=== PATIENT | male | born 1975 | race Caucasian/White ===

== ENCOUNTER 2017-09-07 15:57 | Emergency (ER) | payer MEDICAID ==
[~2017-09-07] VITALS: Ht 182.9 cm; Wt 134.3 kg
[~2017-09-07 15:57] MED LIST: ACETAMINOPHEN &1 TA1 PO; ADVAIR 250/5028 PUFF IN; ADVAIR DISKUS 21 DSK IH; ALBUTEROL2.5 MG/NEB IN; ASPIRIN EC81 MG PO; ATIVAN1 M1 PO; ATORVASTATIN 4040 MG PO; AZITHROMYCIN250 M1 PO; BACTRIM DS 8001 TAB PO; BISOPROLOL 5MG T5 MG PO; BRILINTA90 M1 PO; CLINDAMYCIN HC300 MG PO; CLOPIDOGREL75 M2 PO; COMBIVENT INH14.7 GM IN; COMBIVENT RESPI1 SPR IH; COMBIVENT1 AR1 IH; CUBICIN 500 MG500 MG IV; DIFLUCAN200 MG PO; DOXYCYCLINE100 M5 PO; FLAGYL 500MG.500 MG PO; GABAPENTIN300 MG PO; HYDROCHLOROTHIA25 M1 PO; HYDROCHLOROTHIA50 MG PO; IBU800 MG PO; IMDUR 30MG. TAB30 MG PO; KEFLEX500 M1 PO; LEVAQUIN 750 M750 MG PO; LEVOFLOXACIN 7750 M1 PO; LISINOPRIL 5MG T5 MG PO; LISINOPRIL10 MG PO; LOVENOX 4040 MG/0.1 IJ; MEDROL 4MG. DOSE4 MG PO; METFORMIN HCL1000 MG PO; METFORMIN1000 MG PO; METFORMIN500 MG PO; METOPROLOL25 MG PO; NEURONTIN600 M1 PO; NORCO 325 MG-51 TAB PO; NORCO1 TAB PO; PERCOCET 325 MG1 TA3 PO; PERCOCET 5/3251 EACH PO; PHENERGAN 25MG.25 M1 PO; PROTONIX 40MG T40 MG PO; RANITIDINE HCL150 MG PO; SALMETEROL-F28 PUFFS IN; TYLENOL W/CODEI1 TA2 PO; TYLENOL325 MG PO; VANCOCIN HCL1000 M1 IJ; VENTOLIN H0.09 MG/AC IH
--- OUTSIDE RECORDS SUMMARY | 2017-09-07 16:26 | External Medical Summary Rpt | CCD ---
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 Aguilera SITES INSECT BITE NONVENOMOUS INF 62871 BORDERLINE 01-18-2008 GANN, GLAUC OPEN TAMEKA A ANGLE BL FINDINGS LOW RSK 69162 UNS 01-18-2008 [facility] GASTRITIS&G LEO Aguilera ASTRODUODIT IS W/O MENTION HEMORR 4612 ACUTE 12-16-2007 [facility] ETHMOIDAL APOLINAR [facility] SINUSITIS 57957 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-08-2007 [facility] SLEEP APOLINAR Burgos APNEA 920 CONTUSION 11-04-2007 [place] [facility] EYE E8258 OTH MOTR 11-04-2007 [place] VEH NONTRFF MEDICAL OTH&UNS IMAGING [facility] OTH PERS E8498 OTHER 11-04-[address] [place] [address] [facility] OF [facility] Allergies, Adverse Reactions, Alerts Type Allergy to substance Adverse Reaction to Substance Substance Reaction Severity NO KNOWN ALLERGIES Unknown Unknown Clinical Alert Notifications Alert 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 Diabetes: no eye exam in the last 365 days Diabetes: no lipid panel in the last 365 days Diabetes: no urine protein screening in the last 365 days Medications Na ND Rx Da Fi Fi Am Da Di Ph RX Ph St me C No te ll ll ou ys ag ar # ys at rm s nt no ma ic us Or Da si cy ia de te s n re d GA 45 10 11 60 30 00 HO Ac BA 96 -2 -1 .0 00 ME ti PE 30 4- 7- 00 04 TO ve NT 55 20 20 02 WN IN 55 17 17 52 0 66 PH 10 AR 0 MA MG CY CA OF PS UL CY E NT HI AN A LI 68 10 11 30 30 00 HO Ac SI 00 -2 -1 .0 00 ME ti NO 10 4- 7- 06 TO ve VA 26 20 20 09 WN IL 70 17 17 67 5 8 17 PH AR MG MA CY TA BL OF ET CY NT HI AN A AT 60 10 11 30 30 00 HO Ac OR 50 -2 -1 .0 00 ME ti VA 52 4- 7- [address] 58 20 20 09 WN AT 00 17 17 67 IN 9 18 PH AR 40 MA CY MG OF TA BL CY ET NT HI AN A ME 67 10 11 60 30 00 HO Ac TF 87 -2 -1 .0 00 ME ti OR 70 4- 7- 00 06 TO ve LA 56 20 20 09 WN N 31 17 17 67 HC 0 19 PH L AR 1, MA 00 CY 0 MG OF TA CY BL NT ET HI AN A PA 31 10 11 30 30 00 HO Ac NT 72 -2 -1 .0 00 ME ti OP 20 4- 7- 00 06 TO ve RA 71 20 20 09 WN ZO 39 17 17 67 LE 0 21 PH AR SO MA D CY DR OF 40 CY MG NT HI TA AN B A 00 10 11 30 30 00 HO Ac PI 60 -2 -1 .0 00 ME ti RI 30 4- 7- 00 06 TO ve N 02 20 20 09 WN EC 63 17 17 67 2 22 PH 81 AR MA MG CY TA OF BL ET CY NT HI AN A CL 00 10 11 30 30 00 HO Ac OP 37 -1 -1 .0 00 ME ti ID 83 2- 0- 00 06 TO ve OG 62 20 20 07 WN RE 70 17 17 73 L 5 46 PH 75 AR MA MG CY TA OF BL ET CY NT HI AN A LI 68 10 11 30 30 00 HO Ac SI 00 -1 -1 .0 00 ME ti NO 10 2- 0- 00 06 TO ve VA 26 20 20 09 WN IL 80 17 17 60 8 40 PH 10 AR MA MG CY TA OF BL ET CY NT HI AN A ME 62 10 11 12 30 00 HO Ac TF 75 -1 -1 0. 00 ME ti OR 60 2- 0- 00 06 TO ve LA 14 20 20 0 09 WN N 20 17 17 60 HC 1 51 PH L AR ER MA CY 50 0 OF MG CY TA NT BL HI ET AN A BI 29 10 11 30 30 00 HO Ac SO 30 -1 -1 .0 00 ME ti VA 00 2- 0- 00 06 TO ve OL 12 20 20 09 WN OL 71 17 17 03 3 38 PH FU AR MA MA RA CY TE OF 10 CY MG NT HI TA AN B A CL 00 08 09 30 30 00 HO Ac OP 37 -1 -0 .0 00 ME ti ID 83 1- 8- 00 06 TO ve OG 62 20 20 07 WN RE 77 17 17 73 L 7 46 PH 75 AR MA MG CY TA OF BL ET CY NT HI AN A BI 29 08 09 30 30 00 HO Ac SO 30 -1 -0 .0 00 ME ti VA 00 1- 8- 00 06 TO ve OL 12 20 20 09 WN OL 71 17 17 03 3 38 PH FU AR MA MA RA CY TE OF 10 CY MG NT HI TA AN B A ME 60 08 09 12 30 00 HO Ac TF 50 -1 -0 0. 00 ME ti OR 50 1- 8- 00 06 TO ve LA 26 20 20 0 08 WN N 00 17 17 97 HC 2 91 PH L AR ER MA CY 50 0 OF MG CY TA NT BL HI ET AN A CO 00 08 09 4. 7 00 HO Ac MB 59 -1 -0 00 00 ME ti IV 70 4- 8- 0 06 TO ve EN 02 20 20 09 WN T 40 17 17 23 RE 2 67 PH SP AR IM MA AT CY IN OF NAVARRETE L CY SP NT RA HI Y AN A LI 68 08 09 30 30 00 HO Ac SI 00 -1 -0 .0 00 ME ti NO 10 4- 8- 00 06 TO ve VA 26 20 20 09 WN IL 80 17 17 23 8 68 PH 10 AR MA MG CY TA OF BL ET CY NT HI AN A GA 68 07 08 42 14 00 HO Ac BA 00 -1 -0 .0 00 ME ti PE 10 1- 4- 00 04 TO ve NT 00 20 20 02 WN IN 60 17 17 36 3 23 PH 60 AR 0 MA MG CY TA OF BL ET CY NT HI AN A BI 29 07 08 30 30 00 HO Ac SO 30 -0 -0 .0 00 ME ti VA 00 7- 4- 00 06 TO ve OL 12 20 20 09 WN OL 71 17 17 03 3 38 PH FU AR MA MA RA CY TE OF 10 CY MG NT HI TA AN B A VE 00 06 07 18 17 00 HO Ac NT 17 -3 -2 .0 00 ME ti OL 30 0- 8- 00 06 TO ve IN 68 20 20 09 WN 22 17 17 00 HF 0 24 PH A AR 90 MA CY MC G OF IN NAVARRETE CY LE NT R HI AN A ME 60 06 07 12 30 00 HO Ac TF 50 -2 -2 0. 00 ME ti OR 50 8- 1- 00 06 TO ve LA 26 20 20 0 08 WN N 00 17 17 97 HC 2 91 PH L AR ER MA CY 50 0 OF MG CY TA NT BL HI ET AN A CO 00 06 07 4. 28 00 HO Ac MB 59 -1 -0 00 00 ME ti IV 70 2- 7- 0 06 TO ve EN 02 20 20 08 WN T 40 17 17 26 RE 2 07 PH SP AR IM MA AT CY IN OF NAVARRETE L CY SP NT RA HI Y AN A CL 55 06 07 30 30 00 HO Ac OP 11 -1 -0 .0 00 ME ti ID 10 2- 7- 00 06 TO ve OG 19 20 20 07 WN RE 60 17 17 73 L 5 46 PH 75 AR MA MG CY TA OF BL ET CY NT HI AN A GA 68 06 07 84 28 00 HO Ac BA 00 -1 -0 .0 00 ME ti PE 10 2- 7- 00 06 TO ve NT 00 20 20 08 WN IN 60 17 17 87 3 85 PH 60 AR 0 MA MG CY TA OF BL ET CY NT HI AN A LI 68 05 06 30 30 00 HO Ac SI 00 -2 -1 .0 00 ME ti NO 10 2- 6- 00 06 TO ve VA 26 20 20 08 WN IL 80 17 17 74 8 61 PH 10 AR MA MG CY TA OF BL ET CY NT HI AN A CO 00 05 06 4. 28 00 HO Ac MB 59 -1 -0 00 00 ME ti IV 70 6- 9- 0 06 TO ve EN 02 20 20 08 WN T 40 17 17 26 RE 2 07 PH SP AR IM MA AT CY IN OF NAVARRETE L CY SP NT RA HI Y AN A CL 55 05 06 30 30 00 HO Ac OP 11 -1 -0 .0 00 ME ti ID 10 6- 9- 00 06 TO ve OG 19 20 20 07 WN RE 60 17 17 73 L 5 46 PH 75 AR MA MG CY TA OF BL ET CY NT HI AN A VE 00 05 06 18 17 00 HO Ac NT 17 -1 -0 .0 00 ME ti OL 30 6- 9- 00 06 TO ve IN 68 20 20 07 WN 22 17 17 86 HF 0 30 PH A AR 90 MA CY MC G OF IN NAVARRETE CY LE NT R HI AN A GA 68 05 05 84 28 00 HO Ac BA 00 -0 -2 .0 00 ME ti PE 10 2- 6- 00 06 TO ve NT 00 20 20 08 WN IN 60 17 17 61 3 98 PH 60 AR 0 MA MG CY TA OF BL ET CY NT HI AN A VE 00 04 05 18 17 00 HO Ac NT 17 -2 -1 .0 00 ME ti OL 30 4- 9- 00 06 TO ve IN 68 20 20 07 WN 22 17 17 86 HF 0 30 PH A AR 90 MA CY MC G OF IN NAVARRETE CY LE NT R HI AN A LI 68 04 05 30 30 00 HO Ac SI 00 -1 -1 .0 00 ME ti NO 10 7- 2- 00 06 TO ve VA 26 20 20 08 WN IL 80 17 17 08 8 75 PH 10 AR MA MG CY TA OF BL ET CY NT HI AN A CL 55 04 05 30 30 00 HO Ac OP 11 -1 -1 .0 00 ME ti ID 10 7- 2- 06 TO ve OG 19 20 20 07 WN RE 60 17 17 73 L 5 46 PH 75 AR MA MG CY TA OF BL ET CY NT HI AN A CO 00 04 04 4. 28 00 HO Ac MB 59 -0 -2 00 00 ME ti IV 70 5- 8- 0 06 TO ve EN 02 20 20 08 WN T 40 17 17 26 RE 2 07 PH SP AR IM MA AT CY IN OF NAVARRETE L CY SP NT RA HI Y AN A GA 68 04 04 84 28 00 HO Ac BA 00 -0 -2 .0 00 ME ti PE 10 5- 8- 00 06 TO ve NT 00 20 20 08 WN IN 60 17 17 10 3 36 PH 60 AR 0 MA MG CY TA OF BL ET CY NT HI AN A DA 00 03 04 12 7 00 IN Ac PT 70 -1 -1 .0 05 FU ti OM 30 6- 4- 00 00 SI ve YC 12 20 20 11 ON IN 50 17 17 12 1 61 PA 50 RT 0 NE MG RS OF AL LE XI NG TO N LE 55 03 04 15 7 00 IN Ac VO 15 -2 -1 0. 05 FU ti FL 00 1- 4- 00 00 SI ve OX 15 20 20 0 11 ON AC 73 17 17 12 IN 0 62 PA RT 75 NE 0 RS MG /3 OF 0 ML LE XI NG AL TO N CO 00 03 04 4. 28 00 HO Ac MB 59 -1 -0 00 00 ME ti IV 70 3- 7- 0 06 TO ve EN 02 20 20 08 WN T 40 17 17 26 RE 2 07 PH SP AR IM MA AT CY IN OF NAVARRETE L CY SP NT RA HI Y AN A BI 29 03 04 60 30 00 HO Ac SO 30 -1 -0 .0 00 ME ti VA 00 3- 7- 00 06 TO ve OL 12 20 20 07 WN OL 60 17 17 55 1 31 PH FU AR MA MA RA CY TE 5 OF MG CY NT TA HI B AN A VE 00 03 04 18 17 00 HO Ac NT 17 -1 -0 .0 00 ME ti OL 30 3- 7- 00 06 TO ve IN 68 20 20 07 WN 22 17 17 86 HF 0 30 PH A AR 90 MA CY MC G OF IN NAVARRETE CY LE NT R HI AN A IB 53 03 04 90 30 00 HO Ac UP 74 -1 -0 .0 00 ME ti RO 60 3- 7- 00 06 TO ve FE 46 20 20 07 WN N 60 17 17 91 80 5 66 PH 0 AR MG MA CY TA BL OF ET CY NT HI AN A CL 00 03 04 30 30 00 HO Ac OP 37 -1 -0 .0 00 ME ti ID 83 3- 7- 00 06 TO ve OG 62 20 20 07 WN RE 70 17 17 73 L 5 46 PH 75 AR MA MG CY TA OF BL ET CY NT HI AN A LI 68 03 04 30 30 00 HO Ac SI 18 -1 -0 .0 00 ME ti NO 00 3- 7- 00 06 TO ve VA 51 20 20 08 WN IL 40 17 17 08 3 75 PH 10 AR MA MG CY TA OF BL ET CY NT HI AN A GL 00 03 04 30 30 00 HO Ac IP 59 -1 -0 .0 00 ME ti IZ 10 3- 7- 00 06 TO ve ID 84 20 20 08 WN E 40 17 17 08 ER 1 76 PH 5 AR MA MG CY TA OF BL ET CY NT HI AN A ME 60 03 04 12 30 00 HO Ac TF 50 -1 -0 0. 00 ME ti OR 50 3- 7- 00 06 TO ve LA 26 20 20 0 08 WN N 00 17 17 08 HC 2 77 PH L AR ER MA CY 50 0 OF MG CY TA NT BL HI ET AN A GA 68 03 04 84 28 00 HO Ac BA 00 -0 -0 .0 00 ME ti PE 10 9- 7- 00 06 TO ve NT 00 20 20 08 WN IN 60 17 17 10 3 36 PH 60 AR 0 MA MG CY TA OF BL ET CY NT HI AN A OX 53 03 03 24 6 00 HO Ac YC 74 -0 -3 .0 00 ME ti OD 60 3- 1- 00 02 TO ve ON 20 20 20 01 WN E- 30 17 17 30 AC 5 50 PH ET AR AM MA IN CY OP HE OF N 5- CY 32 NT 5 HI AN A DA 00 03 03 12 7 00 IN Ac PT 70 -0 -3 .0 05 FU ti OM 30 3- 1- 00 00 SI ve YC 12 20 20 11 ON IN 50 17 17 12 1 61 PA 50 RT 0 NE MG RS OF AL LE XI NG TO N LE 55 03 03 15 7 00 IN Ac VO 15 -0 -3 0. 05 FU ti FL 00 3- 1- 00 00 SI ve OX 15 20 20 0 11 ON AC 73 17 17 12 IN 0 62 PA RT 75 NE 0 RS MG /3 OF 0 ML LE XI NG AL TO N SO 00 02 03 30 3 00 IN Ac DI 33 -2 -2 0. 05 FU ti UM 80 3- 4- 00 00 SI ve 55 20 20 0 11 ON CH 31 17 17 10 LO 8 63 PA RI RT DE NE RS 0. 9% OF SO LE SUE XI TI NG ON TO N HY 00 02 03 9. [address] 60 -2 -2 00 00 ME ti OC 33 4- 4- 0 02 TO ve OD 89 20 20 01 WN ON 03 17 17 29 -A 2 86 PH CE AR TA MA LA CY NO PH OF EN CY 5- NT 32 HI 5 AN A CO 00 02 03 4. 30 00 HO Ac MB 59 -1 -1 00 00 ME ti IV 70 0- 0- 0 06 TO ve EN 02 20 20 07 WN T 40 17 17 49 RE 2 07 PH SP AR IM MA AT CY IN OF NAVARRETE L CY SP NT RA HI Y AN A CL 00 02 03 30 30 00 HO Ac OP 37 -1 -1 .0 00 ME ti ID 83 3- 0- 00 06 TO ve OG 62 20 20 07 WN RE 70 17 17 73 L 5 46 PH 75 AR MA MG CY TA OF BL ET CY NT HI AN A BI 29 02 03 60 30 00 HO Ac SO 30 -0 -0 .0 00 ME ti VA 00 2- 3- 00 06 TO ve OL 12 20 20 07 WN OL 60 17 17 55 1 31 PH FU AR MA MA RA CY TE 5 OF MG CY NT TA HI B AN A LI 68 02 03 30 30 00 HO Ac SI 18 -0 -0 .0 00 ME ti NO 00 6- 3- 00 06 TO ve VA 51 20 20 08 WN IL 40 17 17 08 3 75 PH 10 AR MA MG CY TA OF BL ET CY NT HI AN A GL 00 02 03 30 30 00 HO Ac IP 59 -0 -0 .0 00 ME ti IZ 10 6- 3- 00 06 TO ve ID 84 20 20 08 WN E 40 17 17 08 ER 1 76 PH 5 AR MA MG CY TA OF BL ET CY NT HI AN A ME 60 02 03 12 30 00 HO Ac TF 50 -0 -0 0. 00 ME ti OR 50 6- 3- 00 06 TO ve LA 26 20 20 0 08 WN N 00 17 17 08 HC 2 77 PH L AR ER MA CY 50 0 OF MG CY TA NT BL HI ET AN A GA 68 02 03 84 28 00 HO Ac BA 00 -0 -0 .0 00 ME ti PE 10 8- 3- 00 06 TO ve NT 00 20 20 08 WN IN 60 17 17 10 3 36 PH 60 AR 0 MA MG CY TA OF BL ET CY NT HI AN A DA 00 01 02 7. 4 00 IN Ac PT 70 -2 -1 00 05 FU ti OM 30 5- 7- 0 00 SI ve YC 12 20 20 10 ON IN 50 17 17 98 1 52 PA 50 RT 0 NE MG RS OF AL ANNE-MARIE FOSTER NG TO N DA 00 01 02 8. 5 00 IN Ac PT 70 -1 -1 00 05 FU ti OM 30 4- 0- 0 00 SI ve YC 12 20 20 10 ON IN 50 17 17 98 1 52 PA 50 RT 0 NE MG RS OF ESTEBAN LOPEZ NG TO N CO 00 01 02 4. 30 00 HO Ac MB 59 -1 -1 00 00 ME ti IV 70 8- 0- 0 06 TO ve EN 02 20 20 07 WN T 40 17 17 49 RE 2 07 PH SP AR IM MA AT CY IN OF NAVARRETE L CY SP NT RA HI Y AN A HY 00 01 02 [address] 60 -1 -1 .0 00 ME ti OC 33 8- 0- 00 02 TO ve OD 89 20 20 01 WN ON 03 17 17 26 -A 2 27 PH CE AR TA MA LA CY NO PH OF EN CY 5- NT 32 HI 5 AN A VE 00 01 02 18 17 00 HO Ac NT 17 -1 -1 .0 00 ME ti OL 30 8- 0- 00 06 TO ve IN 68 20 20 07 WN 22 17 17 86 HF 0 30 PH A AR 90 MA CY MC G OF IN NAVARRETE CY LE NT R HI AN A LI 00 01 02 30 30 00 HO Ac SI 18 -1 -0 .0 00 ME ti NO 55 1- 3- 00 06 TO ve VA 40 20 20 07 WN IL 01 17 17 93 5 0 19 PH AR MG MA CY TA BL OF ET CY NT HI AN A CL 00 01 02 30 30 00 HO Ac OP 37 -0 -0 .0 00 ME ti ID 83 9- 3- 00 06 TO ve OG 62 20 20 07 WN RE 70 17 17 73 L 5 46 PH 75 AR MA MG CY TA OF BL ET CY NT HI AN A IB 53 01 02 90 30 00 HO Ac UP 74 -0 -0 .0 00 ME ti RO 60 9- 3- 00 06 TO ve FE 46 20 20 07 WN N 60 17 17 91 80 5 66 PH 0 AR MG MA CY TA BL OF ET CY NT HI AN A GA 68 01 02 84 28 00 HO Ac BA 00 -1 -0 .0 00 ME ti PE 10 1- 3- 00 06 TO ve NT 00 20 20 07 WN IN 60 17 17 54 3 10 PH 60 AR 0 MA MG CY TA OF BL ET CY NT HI AN A VE 00 01 01 18 17 00 HO Ac NT 17 -0 -2 .0 00 ME ti OL 30 2- 7- 00 06 TO ve IN 68 20 20 07 WN 22 17 17 86 HF 0 30 PH A AR 90 MA CY MC G OF IN NAVARRETE CY LE NT R HI AN A HY 00 01 01 [address] 60 -0 -2 .0 00 ME ti OC 33 4- 7- 00 02 TO ve OD 89 20 20 01 WN ON 03 17 17 24 -A 2 93 PH CE AR TA MA LA CY NO PH OF EN CY 5- NT 32 HI 5 AN A JOHNSON 53 12 01 20 10 00 HO Ac LF 74 -2 -2 .0 00 ME ti AM 60 2- 0- 00 06 TO ve ET 27 20 20 07 WN HO 20 16 17 81 XA 5 35 PH ZO AR LE MA -T CY MP OF DS CY TA NT BL HI ET AN A ZO 00 12 01 10 10 00 HO Ac LP 09 -2 -2 .0 00 ME ti ID 30 2- 0- 00 04 TO ve EM 07 20 20 02 WN 40 16 17 07 TA 1 39 PH RT AR RA MA TE CY 10 OF MG CY NT TA HI BL AN ET A IS 62 12 01 30 30 00 HO Ac OS 17 -2 -2 .0 00 ME ti OR 50 6- 0- 00 06 TO ve BI 12 20 20 07 WN DE 84 16 17 82 1 37 PH MN AR MA ER CY 30 OF MG CY NT TA HI BL AN ET A GA 68 12 01 84 28 00 HO Ac BA 00 -1 -1 .0 00 ME ti PE 10 6- 3- 00 06 TO ve NT 00 20 20 07 WN IN 60 16 17 54 3 10 PH 60 AR 0 MA MG CY TA OF BL ET CY NT HI AN A SO 00 12 01 10 10 00 IN Ac DI 33 -1 -1 00 05 FU ti UM 80 2- 3- .0 00 SI ve 04 20 20 00 10 ON CH 93 16 17 92 LO 8 27 PA RI RT DE NE RS 0. 9% OF SO LE SUE XI TI NG ON TO N CO 00 12 01 4. 30 00 HO Ac MB 59 -1 -1 00 00 ME ti IV 70 9- 3- 0 06 TO ve EN 02 20 20 07 WN T 40 16 17 49 RE 2 07 PH SP AR IM MA AT CY IN OF NAVARRETE L CY SP NT RA HI Y AN A CL 00 12 01 30 30 00 HO Ac OP 37 -1 -0 .0 00 ME ti ID 83 2- 9- 00 06 TO ve OG 62 20 20 07 WN RE 70 16 17 73 L 5 46 PH 75 AR MA MG CY TA OF BL ET CY NT HI AN A HY 00 12 01 [address] 60 -1 -0 .0 00 ME ti OC 33 2- 9- 00 02 TO ve OD 89 20 20 01 WN ON 03 16 17 22 -A 2 75 PH CE AR TA MA LA CY NO PH OF EN CY 5- NT 32 HI 5 AN A SI 63 10 0 No ME 73 -0 TH 90 2- Lo IC 22 20 ng ON 51 13 er E 0 80 Ac ti MG ve TA B CH EW PA 51 10 0 No NT 07 -0 OP 90 2- Lo RA 05 20 ng ZO 12 13 er LE 0 Ac SO ti D ve DR 40 MG TA B HE 00 09 Ac PA 40 -2 ti RI 97 7- ve N- 76 20 D5 10 13 W 3 25 ,0 00 UN IT /5 00 ML NI 00 09 0 No TR 28 -2 O- 10 7- Lo BI 32 20 ng D 60 13 er 2% 8 Ac OI ti NT ve ME NT ON 00 09 0 No DA 64 -2 NS 16 7- Lo ET 08 20 ng RO 02 13 er N 5 HC Ac L ti 4 ve MG /2 ML AL Mo 00 09 0 No rp 40 -2 hi 91 7- Lo ne 25 20 ng 83 13 er 4M 0 G/ Ac Ml ti ve Sy ri ng e BR 00 09 0 No IL 18 -2 IN 60 7- Lo TA 77 20 ng 73 13 er 90 9 Ac MG ti ve TA BL ET ME 00 09 0 No TO 40 -2 VA 92 7- Lo OL 28 20 ng OL 50 13 er 5 TA Ac RT ti 5 ve MG /5 ML AM P He 00 09 0 No pa 40 -2 ri 91 7- Lo n 40 20 ng 5, 23 13 er 00 1 0 Ac Un ti it ve s/ Ml Sy ri ng e NT 00 09 1 No G 40 -2 0. 91 7- Lo 2 48 20 ng MG 20 13 er /M 2 L Ac IN ti ve D5 W TR 65 10 10 0 15 25 EA 24 LA Ac AM 16 -2 -[address] 68 CK ti AD 20 7- 7- 00 SI 76 ve OL 62 20 20 0 DE GR 71 11 11 EG HC 1 PH OR L AR Y 50 MA E CY MG OF TA BL CY ET NT HI AN A AD 00 10 10 5 60 30 EA 24 AR Ac VA 17 -2 -[address] 68 NO ti IR 30 7- 7- 00 SI 99 LD ve 69 20 20 DE 25 60 11 11 RI 0- 0 PH CH 50 AR AR MA D DI CY W SK US OF CY NT HI AN A ME 62 10 10 0 20 20 EA 24 HO Ac TO 03 -2 -[address] 61 US ti VA 70 1- 1- 00 SI 05 MA ve OL 83 20 20 DE N OL 11 11 11 WI 0 PH LL JOHNSON AR IA CC MA M CY H ER OF 50 CY MG NT HI TA AN B A BA 16 10 10 0 30 10 EA 24 HO Ac CL 71 -2 -[address] 61 US ti OF 40 1- 1- 00 SI 06 MA ve EN 07 20 20 DE N 10 11 11 WI 10 6 PH LL AR IA MG MA M CY H TA BL OF ET CY NT HI AN A TR 65 09 09 0 15 25 EA 24 GI Ac AM 16 -2 -[address] 27 LB ti AD 20 7- 7- 00 SI 03 ER ve OL 62 20 20 0 DE T 71 11 11 NITA HC 1 PH HN L AR W 50 MA CY MG OF TA BL CY ET NT HI AN A CY 00 09 09 0 90 30 EA 24 GI Ac CL 37 -2 -[address] 27 LB ti OB 80 7- 7- 00 SI 05 ER ve EN 75 20 20 DE T ZA 11 11 11 NITA VA 0 PH HN IN AR W E MA 10 CY MG OF TA CY BL NT ET HI AN A TR 65 08 08 0 15 25 EA 23 HE Ac AM 16 -0 -[address] ti AD 20 2- 2- 00 SI 35 ER ve OL 62 20 20 0 DE [address] HC 1 PH EP L AR NAVARRETE 50 MA NI CY E MG L OF TA BL CY ET NT HI AN A 00 08 08 0 90 30 EA 23 HE Ac 59 -0 -[address] 50 [address] ti 10 2- 2- 00 SI 36 ER ve 54 20 20 DE [address] 1 PH EP AR NAVARRETE MA NI CY E L OF CY NT HI AN A CY 00 08 08 0 90 30 EA 23 HE Ac CL 37 -0 -[address] ti OB 80 2- 2- 00 SI 37 ER ve EN 75 20 20 DE ZA [address] VA 0 PH EP IN AR NAVARRETE E MA NI 10 CY E L MG OF TA CY BL NT ET HI AN A TR 65 07 07 0 15 30 EA 23 GI Ac AM 16 -0 -[address] 17 LB ti AD 20 5- 5- 00 SI 53 ER ve OL 62 20 20 0 DE T 71 11 11 NITA HC 1 PH HN L AR W 50 MA CY MG OF TA BL CY ET NT HI AN A CY 00 07 07 0 90 30 EA 23 GI Ac CL 37 -0 -[address] 17 LB ti OB 80 5- 5- 00 SI 55 ER ve EN 75 20 20 DE T ZA 11 11 11 NITA VA 0 PH HN IN AR W E MA 10 CY MG OF TA CY BL NT ET HI AN A IB 53 10 05 5 90 30 EA 19 AR Ac UP 74 -1 -[address] 53 NO ti RO 60 4- 3- 00 SI 94 LD ve FE 46 20 20 DE N 60 10 11 RI 80 5 PH CH 0 AR AR MG MA D CY W TA BL OF ET CY NT HI AN A 59 01 05 5 8. 20 EA 20 AR Ac 31 -2 -[address] 99 NO ti 00 8- 3- 0 SI 77 LD ve 57 20 20 DE 92 11 11 RI 0 PH CH AR AR MA D CY W OF CY NT HI AN A TR 65 03 05 2 15 30 EA 21 GI Ac AM 16 -1 -[address] 68 LB ti AD 20 4- 3- 00 SI 22 ER ve OL 62 20 20 0 DE T 71 11 11 NITA HC 1 PH HN L AR W 50 MA CY MG OF TA BL CY ET NT HI AN A TI 00 03 05 2 90 30 EA 21 GI Ac ZA 18 -1 -[address] 68 LB ti NI 54 4- 3- 00 SI 23 ER ve DI 40 20 20 DE T NE 02 11 11 NITA 3 PH HN HC AR W L MA 4 CY MG OF TA BL CY ET NT HI AN A HY 00 09 04 5 30 30 EA [address] 17 -1 -[address] 07 NO ti OC 22 0- 2- 00 SI 28 LD ve HL 08 20 20 DE OR 96 10 11 RI OT 0 PH CH HI AR AR AZ MA D ID CY W E 50 OF MG CY NT TA HI B AN A TR 65 03 04 2 15 30 EA 21 GI Ac AM 16 -1 -[address] 68 LB ti AD 20 4- 2- 00 SI 22 ER ve OL 62 20 20 0 DE T 71 11 11 NITA HC 1 PH HN L AR W 50 MA CY MG OF TA BL CY ET NT HI AN A TI 00 03 04 2 90 30 EA 21 GI Ac ZA 18 -1 -[address] 68 LB ti NI 54 4- 2- 00 SI 23 ER ve DI 40 20 20 DE T NE 02 11 11 NITA 3 PH HN HC AR W L MA 4 CY MG OF TA BL CY ET NT HI AN A IB 53 10 04 5 90 30 EA 19 AR Ac UP 74 -1 -[address] 53 NO ti RO 60 4- 2- 00 SI 94 LD ve FE 46 20 20 DE N 60 10 11 RI 80 5 PH CH 0 AR AR MG MA D CY W TA BL OF ET CY NT HI AN A 59 01 04 5 8. 20 EA 20 AR Ac 31 -2 -[address] 99 NO ti 00 8- 2- 0 SI 77 LD ve 57 20 20 DE 92 11 11 RI 0 PH CH AR AR MA D CY W OF CY NT HI AN A TR 65 03 03 2 15 30 EA 21 GI Ac AM 16 -1 -[address] 68 LB ti AD 20 4- 4- 00 SI 22 ER ve OL 62 20 20 0 DE T 71 11 11 NITA HC 1 PH HN L AR W 50 MA CY MG OF TA BL CY ET NT HI AN A TI 00 03 03 2 90 30 EA 21 GI Ac ZA 18 -1 -[address] 68 LB ti NI 54 4- 4- 00 SI 23 ER ve DI 40 20 20 DE T NE 02 11 11 NITA 3 PH HN HC AR W L MA 4 CY MG OF TA BL CY ET NT HI AN A IB 53 10 02 5 90 30 EA 19 AR Ac UP 74 -1 -[address] 53 NO ti RO 60 4- 7- 00 SI 94 LD ve FE 46 20 20 DE N 60 10 11 RI 80 5 PH CH 0 AR AR MG MA D CY W TA BL OF ET CY NT HI AN A TR 65 11 01 2 15 30 EA 20 GI Ac AM 16 -3 -[address] 19 LB ti AD 20 0- 9- 00 SI 11 ER ve OL 62 20 20 0 DE T 71 10 11 NITA HC 1 PH HN L AR W 50 MA CY MG OF TA BL CY ET NT HI AN A TI 00 11 01 2 90 30 EA 20 GI Ac ZA 18 -3 -[address] 19 LB ti NI 54 0- 8- 00 SI 12 ER ve DI 40 20 20 DE T NE 02 10 11 NITA 3 PH HN HC AR W L MA 4 CY MG OF TA BL CY ET NT HI AN A 59 01 01 5 8. 20 EA 20 AR Ac 31 -2 -[address] 99 NO ti 00 8- 8- 0 SI 77 LD ve 57 20 20 DE 92 11 11 RI 0 PH CH AR AR MA D CY W OF CY NT HI AN A TR 65 11 12 2 15 30 EA 20 GI Ac AM 16 -3 -[address] 19 LB ti AD 20 0- 0- 00 SI 11 ER ve OL 62 20 20 0 DE T 71 10 10 NITA HC 1 PH HN L AR W 50 MA CY MG OF TA BL CY ET NT HI AN A HY 00 09 12 5 30 30 EA [address] 17 -1 -[address] 07 NO ti OC 22 0- 7- 00 SI 28 LD ve HL 08 20 20 DE OR 96 10 10 RI OT 0 PH CH HI AR AR AZ MA D ID CY W E 50 OF MG CY NT TA HI B AN A TI 00 11 12 2 90 30 EA 20 GI Ac ZA 18 -3 -[address] 19 LB ti NI 54 0- 7- 00 SI 12 ER ve DI 40 20 20 DE T NE 02 10 10 NITA 3 PH HN HC AR W L MA 4 CY MG OF TA BL CY ET NT HI AN A IB 53 10 12 5 90 30 EA 19 AR Ac UP 74 -1 -[address] 53 NO ti RO 60 4- 1- 00 SI 94 LD ve FE 46 20 20 DE N 60 10 10 RI 80 5 PH CH 0 AR AR MG MA D CY W TA BL OF ET CY NT HI AN A TR 65 11 11 2 15 30 EA 20 GI Ac AM 16 -3 -[address] 19 LB ti AD 20 0- 0- 00 SI 11 ER ve OL 62 20 20 0 DE T 71 10 10 NITA HC 1 PH HN L AR W 50 MA CY MG OF TA BL CY ET NT HI AN A TI 00 11 11 2 90 30 EA 20 GI Ac ZA 18 -3 -[address] 19 LB ti NI 54 0- 0- 00 SI 12 ER ve DI 40 20 20 DE T NE 02 10 10 NITA 3 PH HN HC AR W L MA 4 CY MG OF TA BL CY ET NT HI AN A TI 00 08 10 2 90 30 EA 18 GI Ac ZA 18 -3 -[address] 93 LB ti NI 54 1- 8- 00 SI 14 ER ve DI 40 20 20 DE T NE 02 10 10 NITA 3 PH HN HC AR W L MA 4 CY MG OF TA BL CY ET NT HI AN A TR 65 08 10 2 15 30 EA 18 GI Ac AM 16 -3 -[address] 93 LB ti AD 20 1- 8- 00 SI 15 ER ve OL 62 20 20 0 DE T 71 10 10 NITA HC 1 PH HN L AR W 50 MA CY MG OF TA BL CY ET NT HI AN A 59 10 10 0 8. 20 EA 19 AR Ac 31 -2 -[address] 72 NO ti 00 8- 8- 0 SI 59 LD ve 57 20 20 DE 92 10 10 RI 0 PH CH AR AR MA D CY W OF CY NT HI AN A IB 53 10 10 5 90 30 EA 19 AR Ac UP 74 -1 -[address] 53 NO ti RO 60 4- 4- 00 SI 94 LD ve FE 46 20 20 DE N 60 10 10 RI 80 5 PH CH 0 AR AR MG MA D CY W TA BL OF ET CY NT HI AN A TI 00 08 09 2 90 30 EA 18 GI Ac ZA 18 -3 -[address] 93 LB ti NI 54 1- 0- 00 SI 14 ER ve DI 40 20 20 DE T NE 02 10 10 NITA 3 PH HN HC AR W L MA 4 CY MG OF TA BL CY ET NT HI AN A TR 65 08 09 2 15 30 EA 18 GI Ac AM 16 -3 -[address] 93 LB ti AD 20 1- 0- 00 SI 15 ER ve OL 62 20 20 0 DE T 71 10 10 NTIA HC 1 PH HN L AR W 50 MA CY MG OF TA BL CY ET NT HI AN A AL 00 09 09 11 36 30 YO 22 AR Ac BU 48 -1 -1 0. UR 04 NO ti TE 79 6- 6- 00 3 LD ve RO 50 20 20 0 PH L 16 10 10 AR RI JOHNSON 0 MA CH L CY AR 2. D 5 W MG /[address] 59 01 09 5 8. 20 EA 15 AR Ac 31 -1 -[address] 96 NO ti 00 4- 3- 0 SI 23 LD ve 57 20 20 DE 92 10 10 RI 0 PH CH AR AR MA D CY W OF CY NT HI AN A HY 00 09 09 5 30 30 EA [address] 17 -1 -[address] 07 NO ti OC 22 0- 0- 00 SI 28 LD ve HL 08 20 20 DE OR 96 10 10 RI OT 0 PH CH HI AR AR AZ MA D ID CY W E 50 OF MG CY NT TA HI B AN A ME 00 09 09 5 12 30 EA 19 AR Ac TF 09 -1 -[address] 07 NO ti OR 31 0- 0- 00 SI 29 LD ve LA 04 20 20 0 DE N 81 10 10 RI HC 0 PH CH L AR AR 50 MA D 0 CY W MG OF TA BL CY ET NT HI AN A TI 00 08 08 2 90 30 EA 18 GI Ac ZA 18 -3 -[address] 93 LB ti NI 54 1- 1- 00 SI 14 ER ve DI 40 20 20 DE T NE 02 10 10 NITA 3 PH HN HC AR W L MA 4 CY MG OF TA BL CY ET NT HI AN A TR 65 08 08 2 15 30 EA 18 GI Ac AM 16 -3 -[address] 93 LB ti AD 20 1- 1- 00 SI 15 ER ve OL 62 20 20 0 DE T 71 10 10 NITA HC 1 PH HN L AR W 50 MA CY MG OF TA BL CY ET NT HI AN A TR 65 06 08 2 15 30 EA 17 GI Ac AM 16 -0 -[address] 86 LB ti AD 20 4- 2- 00 SI 52 ER ve OL 62 20 20 0 DE T 71 10 10 NITA HC 1 PH HN L AR W 50 MA CY MG OF TA BL CY ET NT HI AN A HY 00 08 08 0 30 30 EA [address] 17 -0 -[address] 54 NO ti OC 22 2- 2- 00 SI 60 LD ve HL 08 20 20 DE OR 96 10 10 RI OT 0 PH CH HI AR AR AZ MA D ID CY W E 50 OF MG CY NT TA HI B AN A 59 01 07 5 8. 20 EA 15 AR Ac 31 -1 -[address] 96 NO ti 00 4- 2- 0 SI 23 LD ve 57 20 20 DE 92 10 10 RI 0 PH CH AR AR MA D CY W OF CY NT HI AN A ME 00 04 07 5 12 30 EA 17 AR Ac TF 09 -2 -[address] 28 NO ti OR 31 1- 2- 00 SI 25 LD ve LA 04 20 20 0 DE N 81 10 10 RI HC 0 PH CH L AR AR 50 MA D 0 CY W MG OF TA BL CY ET NT HI AN A TI 00 06 07 2 90 30 EA 17 GI Ac ZA 18 -0 -[address] 86 LB ti NI 54 4- 2- 00 SI 51 ER ve DI 40 20 20 DE T NE 02 10 10 NITA 3 PH HN HC AR W L MA 4 CY MG OF TA BL CY ET NT HI AN A TR 65 06 07 2 15 30 EA 17 GI Ac AM 16 -0 -[address] 86 LB ti AD 20 4- 2- 00 SI 52 ER ve OL 62 20 20 0 DE T 71 10 10 NITA HC 1 PH HN L AR W 50 MA CY MG OF TA BL CY ET NT HI AN A 00 06 06 2 90 30 EA 17 GI Ac 59 -0 -[address] 86 LB ti 10 4- 4- 00 SI 50 ER ve 54 20 20 DE T 00 10 10 NITA 1 PH HN AR W MA CY OF CY NT HI AN A TI 00 06 06 2 90 30 EA 17 GI Ac ZA 18 -0 -[address] 86 LB ti NI 54 4- 4- 00 SI 51 ER ve DI 40 20 20 DE T NE 02 10 10 NITA 3 PH HN HC AR W L MA 4 CY MG OF TA BL CY ET NT HI AN A TR 65 06 06 2 15 30 EA 17 GI Ac AM 16 -0 -[address] 86 LB ti AD 20 4- 4- 00 SI 52 ER ve OL 62 20 20 0 DE T 71 10 10 NITA HC 1 PH HN L AR W 50 MA CY MG OF TA BL CY ET NT HI AN A HY 00 06 04 11 30 30 EA [address] 17 -2 -[address] 23 NO ti OC 22 2- 1- 00 SI 23 LD ve HL 08 20 20 DE OR 96 09 10 RI OT 0 PH CH HI AR AR AZ MA D ID CY W E 50 OF MG CY NT TA HI B AN A 59 01 04 5 8. 25 EA 15 AR Ac 31 -1 -[address] 96 NO ti 00 4- 1- 0 SI 23 LD ve 57 20 20 DE 92 10 10 RI 0 PH CH AR AR MA D CY W OF CY NT HI AN A TR 65 02 04 2 15 30 EA 16 GI Ac AM 16 -2 -[address] 47 LB ti AD 20 2- 1- 00 SI 31 ER ve OL 62 20 20 0 DE T 71 10 10 NITA HC 1 PH HN L AR W 50 MA CY MG OF TA BL CY ET NT HI AN A ME 00 04 04 5 12 30 EA 17 AR Ac TF 09 -2 -[address] 28 NO ti OR 31 1- 1- 00 SI 25 LD ve LA 04 20 20 0 DE N 81 10 10 RI HC 0 PH CH L AR AR 50 MA D 0 CY W MG OF TA BL CY ET NT HI AN A HY 00 06 03 11 30 30 EA [address] 17 -2 -[address] 23 NO ti OC 22 2- 2- 00 SI 23 LD ve HL 08 20 20 DE OR 96 09 10 RI OT 0 PH CH HI AR AR AZ MA D ID CY W E 50 OF MG CY NT TA HI B AN A 59 01 03 5 8. 25 EA 15 AR Ac 31 -1 -[address] 96 NO ti 00 4- 2- 0 SI 23 LD ve 57 20 20 DE 92 10 10 RI 0 PH CH AR AR MA D CY W OF CY NT HI AN A TR 65 02 03 2 15 30 EA 16 GI Ac AM 16 -2 -[address] 47 LB ti AD 20 2- 2- 00 SI 31 ER ve OL 62 20 20 0 DE T 71 10 10 NITA HC 1 PH HN L AR W 50 MA CY MG OF TA BL CY ET NT HI AN A TI 00 02 03 2 90 30 EA 16 GI Ac ZA 18 -2 -[address] 47 LB ti NI 54 2- 2- 00 SI 33 ER ve DI 40 20 20 DE T NE 02 10 10 NITA 3 PH HN HC AR W L MA 4 CY MG OF TA BL CY ET NT HI AN A 59 01 01 00 8. 25 EA 15 AR Ac 31 -1 -[address] 96 NO ti 00 4- 8- 0 SI 23 LD ve 57 20 20 DE 92 10 10 RI 0 PH CH AR AR MA D CY W OF CY NT HI AN A HY 00 06 01 04 30 30 EA [address] 17 -2 -[address] 23 NO ti OC 22 2- 8- 00 SI 23 LD ve HL 08 20 20 DE OR 96 09 10 RI OT 0 PH CH HI AR AR AZ MA D ID CY W E 50 OF CY MG NT HI TA AN B A TR 65 11 01 02 15 25 EA 15 GI Ac AM 16 -1 -[address] 19 LB ti AD 20 8- 8- 00 SI 11 ER ve OL 62 20 20 0 DE T 71 09 10 NITA HC 1 PH HN L AR W 50 MA CY MG OF TA CY BL NT ET HI AN A TR 65 11 12 01 15 25 EA 15 GI Ac AM 16 -1 -[address] 19 LB ti AD 20 8- 1- 00 SI 11 ER ve OL 62 20 20 0 DE T 71 09 09 NITA HC 1 PH HN L AR W 50 MA CY MG OF TA CY BL NT ET HI AN A 59 01 12 05 8. 25 EA 11 AR Ac 31 -2 -[address] 17 NO ti 00 1- 1- 0 SI 98 LD ve 57 20 20 DE 92 09 09 RI 0 PH CH AR AR MA D CY W OF CY NT HI AN A ME 00 02 12 03 12 30 EA 11 AR Ac TF 09 -0 -[address] 35 NO ti OR 31 5- 1- 00 SI 99 LD ve LA 04 20 20 0 DE N 81 09 09 RI HC 0 PH CH L AR AR 50 MA D 0 CY W MG OF TA CY BL NT ET HI AN A IB 53 11 12 00 90 30 EA 15 AR Ac UP 74 -3 -[address] 34 NO ti RO 60 0- 7- 00 SI 98 LD ve FE 46 20 20 DE N 60 09 09 RI 80 5 PH CH 0 AR AR MG MA D CY W TA BL OF ET CY NT HI AN A HY 00 06 12 03 30 30 EA [address] 17 -2 -[address] 23 NO ti OC 22 2- 7- 00 SI 23 LD ve HL 08 20 20 DE OR 96 09 09 RI OT 0 PH CH HI AR AR AZ MA D ID CY W E 50 OF CY MG NT HI TA AN B A TR 65 11 12 00 15 25 EA 15 GI Ac AM 16 -1 -[address] 19 LB ti AD 20 8- 3- 00 SI 11 ER ve OL 62 20 20 0 DE T 71 09 09 NITA HC 1 PH HN L AR W 50 MA CY MG OF TA CY BL NT ET HI AN A ME 00 02 10 02 12 30 EA 11 AR Ac TF 09 -0 -[address] 35 NO ti OR 31 5- 2- 00 SI 99 LD ve LA 04 20 20 0 DE N 81 09 09 RI HC 0 PH CH L AR AR 50 MA D 0 CY W MG OF TA CY BL NT ET HI AN A 59 01 10 04 8. 25 EA 11 AR Ac 31 -2 -[address] 17 NO ti 00 1- 2- 0 SI 98 LD ve 57 20 20 DE 92 09 09 RI 0 PH CH AR AR MA D CY W OF CY NT HI AN A TR 65 08 10 02 90 30 EA 13 GI Ac AM 16 -1 -[address] 86 LB ti AD 20 7- 2- 00 SI 80 ER ve OL 62 20 20 DE T 71 09 09 NITA HC 1 PH HN L AR W 50 MA CY MG OF TA CY BL NT ET HI AN A TR 65 08 09 01 90 30 EA 13 GI Ac AM 16 -1 -[address] 86 LB ti AD 20 7- 4- 00 SI 80 ER ve OL 62 20 20 DE T 71 09 09 NITA HC 1 PH HN L AR W 50 MA CY MG OF TA CY BL NT ET HI AN A 59 01 09 03 8. 25 EA 11 AR Ac 31 -2 -[address] 17 NO ti 00 1- 4- 0 SI 98 LD ve 57 20 20 DE 92 09 09 RI 0 PH CH AR AR MA D CY W OF CY NT HI AN A HY 00 06 09 02 30 30 EA [address] 17 -2 -[address] 23 NO ti OC 22 2- 4- 00 SI 23 LD ve HL 08 20 20 DE OR 96 09 09 RI OT 0 PH CH HI AR AR [place] MA D ID CY W E 50 OF CY MG NT HI TA AN B A HY 00 06 08 01 30 30 EA [address] 17 -2 -[address] 23 NO ti OC 22 2- 7- 00 SI 23 LD ve HL 08 20 20 DE OR 96 09 09 RI OT 0 PH CH HI AR AR AZ MA D ID CY W E 50 OF CY MG NT HI TA AN B A ZA 10 08 08 00 90 30 EA 13 GI Ac NA 14 -1 -[address] 86 LB ti FL 40 7- 7- 00 SI 78 ER ve EX 60 20 20 DE T 6 61 09 09 NITA 5 PH HN MG AR W MA CA CY PS UL OF E CY NT HI AN A TR 65 08 08 00 90 30 EA 13 GI Ac AM 16 -1 -[address] 86 LB ti AD 20 7- 7- 00 SI 80 ER ve OL 62 20 20 DE T 71 09 09 NITA HC 1 PH HN L AR W 50 MA CY MG OF TA CY BL NT ET HI AN A IB 53 10 08 03 90 30 EA 10 AR Ac UP 74 -3 -[address] 08 NO ti RO 60 1- 7- 00 SI 81 LD ve FE 46 20 20 DE N 60 08 09 RI 80 5 PH CH 0 AR AR MG MA D CY W TA BL OF ET CY NT HI AN A ME 00 02 08 01 12 30 EA 11 AR Ac TF 09 -0 -[address] 35 NO ti OR 31 5- 7- 00 SI 99 LD ve LA 04 20 20 0 DE N 81 09 09 RI HC 0 PH CH L AR AR 50 MA D 0 CY W MG OF TA CY BL NT ET HI AN A 59 01 07 02 8. 25 EA 11 AR Ac 31 -2 -[address] 17 NO ti 00 1- 6- 0 SI 98 LD ve 57 20 20 DE 92 09 09 RI 0 PH CH AR AR MA D CY W OF CY NT HI AN A HY 00 06 07 00 30 30 EA [address] 17 -2 -[address] 23 NO ti OC 22 2- 2- 00 SI 23 LD ve HL 08 20 20 DE OR 96 09 09 RI OT 0 PH CH HI AR AR AZ MA D ID CY W E 50 OF CY MG NT HI TA AN B A MU 00 06 07 00 22 10 EA 13 AR Ac PI 09 -2 -[address] 23 NO ti RO 31 2- 2- 00 SI 24 LD ve CI 01 20 20 DE N 04 09 09 RI 2% 2 PH CH AR AR OI MA D NT CY W ME NT OF CY NT HI AN A IB 53 10 06 02 90 30 EA 10 AR Ac UP 74 -3 -[address] 08 NO ti RO 60 1- 8- 00 SI 81 LD ve FE 46 20 20 DE N 60 08 09 RI 80 5 PH CH 0 AR AR MG MA D CY W TA BL OF ET CY NT HI AN A PE 45 10 06 02 60 1 EA 99 AR Ac RM 80 -1 -[address] 81 NO ti ET 20 0- 8- 00 SI 07 LD ve HR 26 20 20 DE IN 93 08 09 RI 7 PH CH 5% AR AR MA D CR CY W EA M OF CY NT HI AN A 57 02 05 01 30 30 EA 11 AR Ac 66 -0 -[address] 35 NO ti 40 5- 1- 00 SI 98 LD ve 42 20 20 DE 81 09 09 RI 8 PH CH AR AR MA D CY W OF CY NT HI AN A 59 01 05 01 8. 25 EA 11 AR Ac 31 -2 -[address] 17 NO ti 00 1- 7- 0 SI 98 LD ve 57 20 20 DE 92 09 09 RI 0 PH CH AR AR MA D CY W OF CY NT HI AN A ME 00 02 05 00 12 30 EA 11 AR Ac TF 09 -0 -[address] 35 NO ti OR 31 5- 7- 00 SI 99 LD ve LA 04 20 20 0 DE N 81 09 09 RI HC 0 PH CH L AR AR 50 MA D 0 CY W MG OF TA CY BL NT ET HI AN A LO 45 04 05 00 30 30 EA 12 AR Ac RA 80 -2 -[address] 46 NO ti TA 20 3- 7- 00 SI 38 LD ve DI 65 20 20 DE NE 08 09 09 RI 7 PH CH 10 AR AR MA D MG CY W TA OF BL CY ET NT HI AN A 00 04 04 00 10 25 EA 12 AR Ac 59 -1 -[address] 38 NO ti 10 7- 3- 00 SI 89 LD ve 38 20 20 0 DE 50 09 09 RI 1 PH CH AR AR MA D CY W OF CY NT HI AN A CE 00 04 04 00 40 10 EA 12 AR Ac PH 09 -1 -[address] 38 NO ti AL 33 7- 3- 00 SI 88 LD ve EX 14 20 20 DE IN 70 09 09 RI 5 PH CH 50 AR AR 0 MA D MG CY W CA OF PS CY UL NT E HI AN A HY 00 02 03 00 30 30 EA [address] 17 -0 -[address] 35 NO ti OC 22 5- 6- 00 SI 98 LD ve HL 08 20 20 DE OR 38 09 09 RI OT 0 PH CH HI AR AR AZ MA D ID CY W E 25 OF CY MG NT HI TA AN B A IB 53 10 03 01 90 30 EA 10 AR Ac UP 74 -3 -[address] 08 NO ti RO 60 1- 6- 00 SI 81 LD ve FE 46 20 20 DE N 60 08 09 RI 80 5 PH CH 0 AR AR MG MA D CY W TA BL OF ET CY NT HI AN A GE 24 02 02 00 5. 5 EA 11 AR Ac NT 20 -0 -[address] 36 NO ti AM 80 5- 2- 0 SI 03 LD ve IC 58 20 20 DE IN 06 09 09 RI 0 PH CH 0. AR AR 3% MA D CY W EY E OF DR CY OP NT S HI AN A 00 02 02 00 12 30 EA 11 AR Ac 37 -0 -[address] 30 NO ti 80 2- 2- 00 SI 49 LD ve 23 20 20 0 DE 40 09 09 RI 5 PH CH AR AR MA D CY W OF CY NT HI AN A HY 00 03 02 07 30 30 EA [address] 17 -1 -[address] 15 NO ti OC 22 0- 2- 00 SI 88 LD ve HL 08 20 20 DE OR 38 08 09 RI OT 0 PH CH HI AR AR AZ MA D ID CY W E 25 OF CY MG NT HI TA AN B A SM 49 02 02 00 24 5 EA 11 AR Ac 34 -0 -[address] 36 NO ti TU 80 5- 2- 00 SI 01 LD ve SS 01 20 20 0 DE IN 73 09 09 RI 4 PH CH DM AR AR MA D SY CY W RU P OF CY NT HI AN A AZ 00 02 02 00 6. 6 EA 11 AR Ac IT 09 -0 -[address] 36 NO ti HR 37 5- 2- 0 SI 00 LD ve OM 14 20 20 DE YC 61 09 09 RI IN 8 PH CH AR AR 25 MA D 0 CY W MG OF TA CY BL NT ET HI AN A 59 01 01 00 8. 25 EA 11 AR Ac 31 -2 -[address] 17 NO ti 00 1- 0- 0 SI 98 LD ve 57 20 20 DE 92 09 09 RI 0 PH CH AR AR MA D CY W OF CY NT HI AN A HY 00 03 01 06 30 30 EA [address] 17 -1 -[address] 15 NO ti OC 22 0- 1- 00 SI 88 LD ve HL 08 20 20 DE OR 38 08 09 RI OT 0 PH CH HI AR AR AZ MA D ID CY W E 25 OF CY MG NT HI TA AN B A HY 00 03 11 05 30 30 EA [address] 17 -1 -[address] 15 NO ti OC 22 0- 7- 00 SI 88 LD ve HL 08 20 20 DE OR 38 08 08 RI OT 0 PH CH HI AR AR AZ MA D ID CY W E 25 OF CY MG NT HI TA AN B A 49 10 11 00 90 30 EA 10 AR Ac 88 -3 -[address] 08 NO ti 40 1- 7- 00 SI 81 LD ve 77 20 20 DE 90 08 08 RI 1 PH CH AR AR MA D CY W OF CY NT HI AN A PE 45 10 11 01 60 1 EA 99 AR Ac RM 80 -1 -[address] 81 NO ti ET 20 0- 7- 00 SI 07 LD ve HR 26 20 20 DE IN 93 08 08 RI 7 PH CH 5% AR AR MA D CR CY W EA M OF CY NT HI AN A 60 07 10 03 10 25 EA 98 No Ac 50 -2 -[address] 80 t ti 50 2- 3- 00 SI 36 Av ve 17 20 20 0 DE ai 10 08 08 la 8 PH bl AR e MA CY OF CY NT HI AN A PE 45 10 10 00 60 1 EA 99 No Ac RM 80 -1 -[address] 81 t ti ET 20 0- 3- 00 SI 07 Av ve HR 26 20 20 DE ai IN 93 08 08 la 7 PH bl 5% AR e MA CR CY EA M OF CY NT HI AN A PE 45 09 10 01 60 1 EA 99 No Ac RM 80 -2 -[address] 56 t ti ET 20 2- 9- 00 SI 03 Av ve HR 26 20 20 DE ai IN 93 08 08 la 7 PH bl 5% AR e MA CR CY EA M OF CY NT HI AN A AZ 00 09 10 00 6. 5 EA 99 No Ac IT 09 -2 -[address] 56 t ti HR 37 2- 9- 0 SI 05 Av ve OM 14 20 20 DE ai YC 61 08 08 la IN 8 PH bl AR e 25 MA 0 CY MG OF TA CY BL NT ET HI AN A 00 09 10 00 40 10 EA 99 No Ac 17 -2 -[address] 56 t ti 22 2- 9- 00 SI 04 Av ve 92 20 20 DE ai 96 08 08 la 0 PH bl AR e MA CY OF CY NT HI AN A SM 49 09 09 00 59 1 EA 99 No Ac 34 -1 -[address] 49 t ti LI 80 6- 6- 00 SI 79 Av ve CE 46 20 20 DE ai 03 08 08 la TR 0 PH bl EA AR e TM MA EN CY T PE OF RM CY ET NT HR HI IN AN A ME 60 02 09 02 12 30 EA 97 No Ac TF 50 -0 -[address] 15 t ti OR 50 1- 6- 00 SI 90 Av ve LA 19 20 20 0 DE ai N 00 08 08 la HC 1 PH bl L AR e 50 MA 0 CY MG OF TA CY BL NT ET HI AN A 60 07 09 02 10 25 EA 98 No Ac 50 -2 -[address] 80 t ti 50 2- 6- 00 SI 36 Av ve 17 20 20 0 DE ai 10 08 08 la 8 PH bl AR e MA CY OF CY NT HI AN A VA 00 04 09 01 30 7 EA 97 No Ac OM 78 -1 -[address] 62 t ti ET 11 5- 6- 00 SI 71 Av ve NAVARRETE 83 20 20 DE ai ZI 01 08 08 la NE 0 PH bl AR e 25 MA CY MG OF TA CY BL NT ET HI AN A 17 06 09 01 17 25 EA 98 No Ac 27 -1 -[address] 34 t ti 00 2- 6- 00 SI 65 Av ve 72 20 20 DE ai 10 08 08 la 1 PH bl AR e MA CY OF CY NT HI AN A SM 49 08 09 00 59 1 EA 99 No Ac 34 -2 -[address] 26 t ti LI 80 8- 1- 00 SI 16 Av ve CE 46 20 20 DE ai 03 08 08 la TR 0 PH bl EA AR e TM MA EN CY T PE OF RM CY ET NT HR HI IN AN A HY 00 03 09 04 30 30 EA [address] 17 -1 -[address] 15 t ti OC 22 0- 1- 00 SI 88 Av ve HL 08 20 20 DE ai OR 38 08 08 la OT 0 PH bl HI AR e AZ MA ID CY E 25 OF CY MG NT HI TA AN B A 60 07 08 01 10 25 EA 98 No Ac 50 -2 -[address] 80 t ti 50 2- 8- 00 SI 36 Av ve 17 20 20 0 DE ai 10 08 08 la 8 PH bl AR e MA CY OF CY NT HI AN A AM 00 07 08 00 30 10 EA 98 No Ac OX 78 -2 -[address] 80 t ti IC 12 2- 1- 00 SI 37 Av ve IL 61 20 20 DE ai LI 30 08 08 la N 5 PH bl 50 AR e 0 MA MG CY CA OF PS CY UL NT E HI AN A 60 07 08 00 10 25 EA 98 No Ac 50 -2 -[address] 80 t ti 50 2- 1- 00 SI 36 Av ve 17 20 20 0 DE ai 10 08 08 la 8 PH bl AR e MA CY OF CY NT HI AN A HY 00 03 07 03 30 30 EA [address] 17 -1 -[address] 15 t ti OC 22 0- 7- 00 SI 88 Av ve HL 08 20 20 DE ai OR 38 08 08 la OT 0 PH bl HI AR e [place] MA ID CY E 25 OF CY MG NT HI TA AN B A 00 06 07 01 18 9 EA 98 No Ac 47 -1 -[address] 34 t ti 21 2- 7- 00 SI 66 Av ve 63 20 20 0 DE ai 01 08 08 la 6 PH bl AR e MA CY OF CY NT HI AN A 60 06 07 00 20 10 EA 98 No Ac 50 -1 -[address] 34 t ti 51 2- 3- 00 SI 64 Av ve 30 20 20 DE ai 90 08 08 la 1 PH bl AR e MA CY OF CY NT HI AN A 60 02 07 05 10 25 EA 96 No Ac 50 -1 -[address] 76 t ti 50 1- 3- 00 SI 01 Av ve 17 20 20 0 DE ai 10 08 08 la 8 PH bl AR e MA CY OF CY NT HI AN A 17 06 07 00 17 25 EA 98 No Ac 27 -1 -[address] 34 t ti 00 2- 3- 00 SI 65 Av ve 72 20 20 DE ai 10 08 08 la 1 PH bl AR e MA CY OF CY NT HI AN A SM 49 06 07 01 59 1 EA 98 No Ac 34 -0 -[address] 27 t ti LI 80 6- 3- 00 SI 86 Av ve CE 46 20 20 DE ai 03 08 08 la TR 0 PH bl EA AR e TM MA EN CY T PE OF RM CY ET NT HR HI IN AN A 00 06 07 00 18 9 EA 98 No Ac 47 -1 -[address] 34 t ti 21 2- 3- 00 SI 66 Av ve 63 20 20 0 DE ai 01 08 08 la 6 PH bl AR e MA CY OF CY NT HI AN A SM 49 06 06 00 59 1 EA 98 No Ac 34 -0 -[address] 27 t ti LI 80 6- 2- 00 SI 86 Av ve CE 46 20 20 DE ai 03 08 08 la TR 0 PH bl EA AR e TM MA EN CY T PE OF RM CY ET NT HR HI IN AN A TR 57 02 06 04 10 25 EA 96 No Ac AM 66 -1 -[address] 76 t ti AD 40 1- 5- 00 SI 01 Av ve OL 37 20 20 0 DE ai 71 08 08 la HC 8 PH bl L AR e 50 MA CY MG OF TA CY BL NT ET HI AN A HY 00 03 06 02 30 30 EA [address] 17 -1 -[address] 15 t ti OC 22 0- 5- 00 SI 88 Av ve HL 08 20 20 DE ai OR 38 08 08 la OT 0 PH bl HI AR e [place] MA ID CY E 25 OF CY MG NT HI TA AN B A VA 37 02 06 02 30 30 EA 96 No Ac IL 00 -1 -[address] 85 t ti OS 00 8- 5- 00 SI 28 Av ve EC 45 20 20 DE ai 50 08 08 la OT 2 PH bl C AR e 20 MA .6 CY MG OF CY TA NT BL HI ET AN A ME 60 02 05 01 12 30 EA 97 No Ac TF 50 -0 -[address] 15 t ti OR 50 1- 2- 00 SI 90 Av ve LA 19 20 20 0 DE ai N 00 08 08 la HC 1 PH bl L AR e 50 MA 0 CY MG OF TA CY BL NT ET HI AN A TR 57 02 05 03 10 25 EA 96 No Ac AM 66 -1 -[address] 76 t ti AD 40 1- 8- 00 SI 01 Av ve OL 37 20 20 0 DE ai 71 08 08 la HC 8 PH bl L AR e 50 MA CY MG OF TA CY BL NT ET HI AN A AZ 00 04 04 00 6. 6 EA 97 No Ac IT 09 -1 -[address] 62 t ti HR 37 5- 4- 0 SI 69 Av ve OM 14 20 20 DE ai YC 61 08 08 la IN 8 PH bl AR e 25 MA 0 CY MG OF TA CY BL NT ET HI AN A SE 00 03 04 01 60 30 EA 97 No Ac RE 17 -0 -[address] 11 t ti VE 30 6- 4- 00 SI 38 Av ve NT 52 20 20 DE ai 10 08 08 la DI 0 PH bl SK AR e US MA CY 50 OF MC CY G NT HI AN A HY 00 03 04 01 30 30 EA [address] 17 -1 -[address] 15 t ti OC 22 0- 4- 00 SI 88 Av ve HL 08 20 20 DE ai OR 38 08 08 la OT 0 PH bl HI AR e AZ MA ID CY E 25 OF CY MG NT HI TA AN B A TR 57 02 04 02 10 25 EA 96 No Ac AM 66 -1 -[address] 76 t ti AD 40 1- 4- 00 SI 01 Av ve OL 37 20 20 0 DE ai 71 08 08 la HC 8 PH bl L AR e 50 MA CY MG OF TA CY BL NT ET HI AN A VA 00 04 04 00 30 7 EA 97 No Ac OM 78 -1 -[address] 62 t ti ET 11 5- 4- 00 SI 71 Av ve NAVARRETE 83 20 20 DE ai ZI 01 08 08 la NE 0 PH bl AR e 25 MA CY MG OF TA CY BL NT ET HI AN A 60 04 04 00 24 4 EA 97 No Ac 25 -1 -[address] 62 t ti 80 5- 4- 00 SI 70 Av ve 23 20 20 0 DE ai 91 08 08 la 6 PH bl AR e MA CY OF CY NT HI AN A VA 37 02 04 01 30 30 EA 96 No Ac IL 00 -1 -[address] 85 t ti OS 00 8- 7- 00 SI 28 Av ve EC 45 20 20 DE ai 50 08 08 la OT 2 PH bl C AR e 20 MA .6 CY MG OF CY TA NT BL HI ET AN A 53 02 04 01 10 25 EA 96 No Ac 48 -1 -[address] 76 t ti 90 1- 7- 00 SI 01 Av ve 49 20 20 0 DE ai 90 08 08 la 1 PH bl AR e MA CY OF CY NT HI AN A NA 00 03 04 00 17 17 EA 97 No Ac SO 08 -1 -[address] 20 t ti NE 51 3- 7- 00 SI 30 Av ve X 28 20 20 DE ai 50 80 08 08 la 1 PH bl MC AR e G MA NA CY SA L OF SP CY RA NT Y HI AN A 00 03 04 00 40 10 EA 97 No Ac 59 -1 -[address] 15 t ti 10 0- 7- 00 SI 47 Av ve 34 20 20 DE ai 90 08 08 la 1 PH bl AR e MA CY OF CY NT HI AN A HY 00 03 04 00 30 30 EA [address] 17 -1 -[address] 15 t ti OC 22 0- 7- 00 SI 88 Av ve HL 08 20 20 DE ai OR 38 08 08 la OT 0 PH bl HI AR e [place] MA ID CY E 25 OF CY MG NT HI TA AN B A 00 03 04 00 40 6 EA 97 No Ac 59 -1 -[address] 24 t ti 10 7- 7- 00 SI 70 Av ve 38 20 20 DE ai 50 08 08 la 1 PH bl AR e MA CY OF CY NT HI AN A ME 60 02 04 00 12 30 EA 97 No Ac TF 50 -0 -[address] 15 t ti OR 50 1- 0- 00 SI 90 Av ve LA 19 20 20 0 DE ai N 00 08 08 la HC 1 PH bl L AR e 50 MA 0 CY MG OF TA CY BL NT ET HI AN A 60 03 04 00 20 20 EA 97 No Ac 59 -0 -[address] 11 t ti 80 6- 7- 00 SI 35 Av ve 06 20 20 DE ai 16 08 08 la 0 PH bl AR e MA CY OF CY NT HI AN A 00 03 04 00 30 7 EA 97 No Ac 59 -0 -[address] 07 t ti 10 SI 00 Av ve 38 20 20 DE ai 50 08 08 la 1 PH bl AR e MA CY OF CY NT HI AN A EN 60 02 04 00 40 6 EA 96 No Ac DO 95 -2 -[address] 97 t ti CE 10 7 SI 84 Av ve T 71 20 20 DE ai 10 27 08 08 la -3 0 PH bl 25 AR e MA MG CY TA OF BL CY ET NT HI AN A SE 00 03 04 00 60 30 EA 97 No Ac RE 17 -0 -[address] 11 t ti VE 30 - 7- SI 38 Av ve NT 52 20 20 DE ai 10 08 08 la DI 0 PH bl SK AR e US MA CY 50 OF MC CY G NT HI AN A VA 00 02 04 00 20 5 EA 96 No Ac OM 78 -2 -[address] 97 t ti ET 11 7 SI 85 Av ve NAVARRETE 83 20 20 DE ai ZI 01 08 08 la NE 0 PH bl AR e 25 MA CY MG OF TA CY BL NT ET HI AN A HY 00 10 03 03 30 30 EA [address] 17 -2 -[address] 29 t ti OC 22 5- 6 00 SI 49 Av ve HL 08 20 20 DE ai OR 38 07 08 la OT 0 PH bl HI AR e AZ MA ID CY E 25 OF CY MG NT HI TA AN B A ME 60 10 03 02 12 30 EA 95 No Ac TF 50 -3 -[address] 35 t ti OR 50 0- 6- 00 SI 25 Av ve LA 19 20 20 0 DE ai N 00 07 08 la HC 1 PH bl L AR e 50 MA 0 CY MG OF TA CY BL NT ET HI AN A VA 37 02 03 00 30 30 EA 96 No Ac IL 00 -1 -[address] 85 t ti OS 00 8- 6- 00 SI 28 Av ve EC 45 20 20 DE ai 50 08 08 la OT 2 PH bl C AR e 20 MA .6 CY MG OF CY TA NT BL HI ET AN A 53 02 03 00 10 25 EA 96 No Ac 48 -1 -[address] 76 t ti 90 1- 6- 00 SI 01 Av ve 49 20 20 0 DE ai 91 08 08 la 0 PH bl AR e MA CY OF CY NT HI AN A 60 02 03 00 30 15 EA 96 No Ac 50 -1 -[address] 76 t ti 51 1- 6- 00 SI 02 Av ve 30 20 20 DE ai 90 08 08 la 1 PH bl AR e MA CY OF CY NT HI AN A HY 00 10 03 02 30 30 EA [address] 17 -2 -[address] 29 t ti OC 22 5- 4- 00 SI 49 Av ve HL 08 20 20 DE ai OR 38 07 08 la OT 0 PH bl HI AR e [place] MA ID CY E 25 OF CY MG NT HI TA AN B A Vital Signs 07-06-2013 16:41 Name Value Interpretat Reference Comment ion Range BP 87 mm[Hg] Diastolic BP Systolic 131 mm[Hg] Heart 110 /min Rate/Pulse O2% 97 % 07-06-2013 16:38 Name Value Interpretat Reference Comment ion Range Respiratory 20 /min Rate 07-06-2013 14:20 Name Value Interpretat Reference Comment ion Range BP 100 mm[Hg] Diastolic BP Systolic 156 mm[Hg] Heart 118 /min Rate/Pulse O2% 98 % Respiratory 18 /min Rate 07-01-2013 11:40 Name Value Interpretat Reference Comment ion Range Body 98.5 [degF] Temperature BP 104 mm[Hg] Diastolic BP Systolic 163 mm[Hg] Heart 78 /min Rate/Pulse O2% 98 % Respiratory 20 /min Rate 07-01-2013 10:06 Name Value Interpretat Reference Comment ion Range BP 106 mm[Hg] Diastolic BP Systolic 180 mm[Hg] Heart 101 /min Rate/Pulse O2% 98 % Respiratory 20 /min Rate 04-07-2013 23:53 Name Value Interpretat Reference Comment ion Range BP 89 mm[Hg] Diastolic BP Systolic 140 mm[Hg] Heart 102 /min Rate/Pulse O2% 97 % Respiratory 20 /min Rate 04-07-2013 22:53 Name Value Interpretat Reference Comment ion Range BP 104 mm[Hg] Diastolic BP Systolic 158 mm[Hg] Heart 104 /min Rate/Pulse O2% 97 % Respiratory 20 /min Rate Results Labs Lab Lab Date Result Refere Interp Status Commen Order Detail nces retati t Range on Urine 9-analyte drugs of abuse screening (07-28-2017 15:25) Comment: Positive urine drug screen samples are stored for 7 days. Comment: Contact the Lab if confirmation of positives is needed. Urine = <200 complet barbitu 017 NEGATIV ed rates 15:25 E ng/mL measure ment by screen Serum = 200 complet or 017 NEGATIV ng/mL ed plasma 15:25 E ng/mL benzodi azepine s measure m Cocaine = <300 complet 017 NEGATIV ed measure 15:25 E ng/g ment (mass/v olume) Methado = <300 complet ne 017 NEGATIV ed measure 15:25 E ng/mL ment (mass/v olume) Phencyc = <25 complet lidine 017 NEGATIV ed measure 15:25 E ng/mL ment (mass/v olume) 11-hydr NEGATIV <50 complet oxy 017 E ed delta-9 15:25 NEGATIV E L tetrahy ng/mL drocann abinol Urine NEGATIV <1000 complet ampheta 017 E ed mine 15:25 NEGATIV screeni E L ng test ng/mL Opiates = <300 complet 017 NEGATIV ed measure 15:25 E ng/mL ment (mass/v olume) Drugs identified in Urine by Screen method (07-28-2017 15:25) Ampheta NEGATIV <1000 complet mine 017 E ed [Presen 15:25 ce] in Urine by Screen method 11-Hydr NEGATIV <50 complet oxy 017 E ed delta-9 15:25 tetrahy drocann abinol [Presen ce] in Unspeci fied specime n Bacteria Wnd Cult (12-01-2016 14:18) CC XXX LGRO complet VC-aCnc 017 LIGHT ed 14:18 GROWTH L Bacteri [id number] complet a XXX 017 ed Anaerob 14:18 Staphyl e+Aerob ococcus e Cult aureus (organi sm) SCT SAUR STAPHYL OCOCCUS AUREUS L Bacteri [id number] complet a XXX 017 01 ed Anaerob 14:18 Methici e+Aerob llin e Cult resista nt Staphyl ococcus aureus (organi sm) SCT MRSA1 (MRSA) L Comment: 1+ Staphylococcus aureus (organism) Methicillin resistant Staphylococcus aureus Comment: (organism) Bacteri [id number] complet a XXX 017 4 ed Anaerob 14:18 Pseudom e+Aerob onas e Cult aerugin barbra (organi sm) SCT PSAR PSEUDOM ONAS AERUGIN BARBRA L Comment: 1+ Pseudomonas aeruginosa (organism) Comment: NOTE: Patient needs MRSA Protocol Comment: 1+ MIXED SKIN PATEL TROPONIN I (07-06-2013 15:40) TROPONI 2.44 0.00-0. complet N I 013 ng/mL 06 ed 15:40 COMPREHENSIVE METABOLIC PANEL (07-06-2013 13:05) Glucose 284 74-106 complet 013 mg/dL ed Bld-mCn 13:05 c BUN 8 mg/dL 7-18 complet Bld-mCn 013 ed c 13:05 Creat 1.0 0.8-1.3 complet SerPl-m 013 mg/dL ed Cnc 13:05 ESTIMAT 196 50-200 complet ED 013 ML/MIN ed CREATIN 13:05 INE CLEARAN CE GFR 85 Greater complet (ESTIMA 013 ML/MIN than ed PABLO) 13:05 60 Sodium 137 136-145 complet SerPl-s 013 mmoL/L ed Cnc 13:05 Potassi 4.0 3.5-5.1 complet um 013 mmoL/L ed SerPl-s 13:05 Cnc Chlorid 98 98-107 complet e 013 mmoL/L ed SerPl-s 13:05 Cnc CO2 29 21.0-32 complet SerPl-s 013 mmoL/L .0 ed Cnc 13:05 Calcium 8.7 8.5-10. complet 013 mg/dL 1 ed SerPl-m 13:05 Cnc Prot 9.1 6.4-8.2 complet SerPl-m 013 gm/dL ed Cnc 13:05 Albumin 3.5 3.4-5.0 complet 013 gm/dL ed SerPl-m 13:05 Cnc Globuli 5.6 1.3-3.2 complet n 013 gm/dL ed Ser-mCn 13:05 c Albumin 0.6 UNK 1.1-1.8 complet /Glob 013 ed SerPl-m 13:05 Rto Bilirub 0.5 0.2-1.0 complet 013 mg/dL ed SerPl-m 13:05 Cnc AST 27 U/L 15-37 complet SerPl-c 013 ed Cnc 13:05 ALT 42 U/L 30-65 complet SerPl-c 013 ed Cnc 13:05 ALP 119 U/L 50-136 complet SerPl-c 013 ed Cnc 13:05 CBC with AUTO DIFF (07-06-2013 13:05) WBC # 07-06-2 12.1 4.8-10. complet Bld 013 K/MM3 8 ed Auto 13:05 RBC # 07-06-2 5.01 4.6-6.2 complet Bld 013 M/mm3 ed Auto 13:05 Hgb 14.5 14.1-18 complet Bld-mCn 013 g/dL .0 ed c 13:05 Hct Fr 43.8 % 42.0-52 complet Bld 013 .0 ed 13:05 MCV RBC 87.4 fl 82.2-97 complet 013 .8 ed 13:05 MCH RBC 29.0 pg 27-31.2 complet Qn 013 ed Auto 13:05 MEAN 10--2 33.2 31.8-35 complet CORPUSC 013 g/dl .4 ed ULAR 13:05 HGB CONC RDW RBC 10-02-2 15.8 % 11.5-17 complet Auto 013 .5 ed 13:05 Platele 10-02-2 443 142-424 complet t Bld 013 K/mm3 ed Ql 13:05 Manual MEAN 10-2 6.8 fl 7.4-10. complet PLATELE 013 4 ed T 13:05 VOLUME Granulo 10-02-2 71.8 % 37.0-80 complet cytes 013 .0 ed Fr Bld 13:05 Auto LYMPH % 10-02-2 20.8 % 10-50 complet 013 ed 13:05 Monocyt 10-02-2 3.9 % 1.7-9.3 complet es Fr 013 ed Bld 13:05 Auto Eosinop 10-02-2 3.0 % 0.1-12. complet hil Fr 013 0 ed Bld 13:05 Auto Basophi 10-02-2 0.5 % 0.1-2.0 complet ls Fr 013 ed Bld 13:05 Auto Granulo 10-02-2 8.7 1.3-8.0 complet cytes # 013 K/mm3 ed Bld 13:05 Auto Lymphoc 10-02-2 2.5 0.7-4.5 complet ytes Fr 013 K/mm3 ed Bld 13:05 Auto Monocyt 10-02-2 0.5 0.1-1.0 complet es # 013 K/mm3 ed Bld 13:05 Auto Eosinop 10-02-2 0.4 0.0-0.4 complet hil # 013 K/mm3 ed Bld 13:05 Auto Basophi 10-02-2 0.1 0-0.2 complet ls # 013 K/MM3 ed Bld 13:05 Auto COMPREHENSIVE METABOLIC PANEL (07-01-2013 09:35) Glucose 255 74-106 complet 013 mg/dL ed Bld-mCn 09:35 c BUN 07-01- 13 7-18 complet Bld-mCn 013 mg/dL ed c 09:35 Creat 2 1.0 0.8-1.3 complet SerPl-m 013 mg/dL ed Cnc 09:35 ESTIMAT 197 50-200 complet ED 013 ML/MIN ed CREATIN 09:35 INE CLEARAN CE GFR 85 Greater complet (ESTIMA 013 ML/MIN than ed PABLO) 09:35 60 Sodium 07-01- 136 136-145 complet SerPl-s 013 mmoL/L ed Cnc 09:35 Potassi 4.3 3.5-5.1 complet um 013 mmoL/L ed SerPl-s 09:35 Cnc Chlorid 97 98-107 complet e 013 mmoL/L ed SerPl-s 09:35 Cnc CO2 30 21.0-32 complet SerPl-s 013 mmoL/L .0 ed Cnc 09:35 Calcium 9.1 8.5-10. complet 013 mg/dL 1 ed SerPl-m 09:35 Cnc Prot 8.7 6.4-8.2 complet SerPl-m 013 gm/dL ed Cnc 09:35 Albumin 3.6 3.4-5.0 complet 013 gm/dL ed SerPl-m 09:35 Cnc Globuli 5.1 1.3-3.2 complet n 013 gm/dL ed Ser-mCn 09:35 c Albumin 0.7 UNK 1.1-1.8 complet /Glob 013 ed SerPl-m 09:35 Rto Bilirub 0.6 0.2-1.0 complet 013 mg/dL ed SerPl-m 09:35 Cnc AST 19 U/L 15-37 complet SerPl-c 013 ed Cnc 09:35 ALT 2 42 U/L 30-65 complet SerPl-c 013 ed Cnc 09:35 ALP 2 109 U/L 50-136 complet SerPl-c 013 ed Cnc 09:35 TROPONIN I (07-01-2013 09:35) TROPONI 07-01-2 0.37 0.00-0. complet N I 013 ng/mL 06 ed 09:35 CBC with AUTO DIFF (07-01-2013 09:35) WBC # 07-01-2 11.3 4.8-10. complet Bld 013 K/MM3 8 ed Auto 09:35 RBC # 0927-2 5.47 4.6-6.2 complet Bld 013 M/mm3 ed Auto 09:35 Hgb 07-01-2 15.8 14.1-18 complet Bld-mCn 013 g/dL .0 ed c 09:35 Hct Fr 07-01-2 47.8 % 42.0-52 complet Bld 013 .0 ed 09:35 MCV RBC 07-01-2 87.4 fl 82.2-97 complet 013 .8 ed 09:35 MCH RBC 07-01-2 28.8 pg 27-31.2 complet Qn 013 ed Auto 09:35 MEAN 07-01-2 33.0 31.8-35 complet CORPUSC 013 g/dl .4 ed ULAR 09:35 HGB CONC RDW RBC 07-01-2 16.0 % 11.5-17 complet Auto 013 .5 ed 09:35 Platele --2 295 142-424 complet t Bld 013 K/mm3 ed Ql 09:35 Manual MEAN 07-01-2 6.8 fl 7.4-10. complet PLATELE 013 4 ed T 09:35 VOLUME Granulo 07-01-2 75.4 % 37.0-80 complet cytes 013 .0 ed Fr Bld 09:35 Auto LYMPH % -27-2 17.2 % 10-50 complet 013 ed 09:35 Monocyt 09-27-2 4.4 % 1.7-9.3 complet es Fr 013 ed Bld 09:35 Auto Eosinop 09-27-2 2.7 % 0.1-12. complet hil Fr 013 0 ed Bld 09:35 Auto Basophi 09-27-2 0.3 % 0.1-2.0 complet ls Fr 013 ed Bld 09:35 Auto Granulo 09-27-2 8.5 1.3-8.0 complet cytes # 013 K/mm3 ed Bld 09:35 Auto Lymphoc 09-27-2 1.9 0.7-4.5 complet ytes Fr 013 K/mm3 ed Bld 09:35 Auto Monocyt 09-27-2 0.5 0.1-1.0 complet es # 013 K/mm3 ed Bld 09:35 Auto Eosinop 09-27-2 0.3 0.0-0.4 complet hil # 013 K/mm3 ed Bld 09:35 Auto Basophi 07-01-2 0.0 0-0.2 complet ls # 013 K/MM3 ed Bld 09:35 Auto Ethanol Bld-nc (04-07-2013 21:45) Ethanol 04-07-2 291 0-99 complet 013 mg/dL ed Bld-mCn 21:45 c COMPREHENSIVE METABOLIC PANEL (04-07-2013 21:45) Glucose 04-07- 153 74-106 complet 013 mg/dL ed Bld-mCn 21:45 c BUN 04-07-2 10 7-18 complet Bld-mCn 013 mg/dL ed c 21:45 Creat 04-07-2 1.0 0.8-1.3 complet SerPl-m 013 mg/dL ed Cnc 21:45 ESTIMAT 04-07-2 193 50-200 complet ED 013 ML/MIN ed CREATIN 21:45 INE CLEARAN CE GFR 85 Greater complet (ESTIMA 013 ML/MIN than ed PABLO) 21:45 60 Sodium 04-07-2 141 136-145 complet SerPl-s 013 mmoL/L ed Cnc 21:45 Potassi 04-07-2 3.9 3.5-5.1 complet um 013 mmoL/L ed SerPl-s 21:45 Cnc Chlorid 04-07-2 99 98-107 complet e 013 mmoL/L ed SerPl-s 21:45 Cnc CO2 04-07-2 29 21.0-32 complet SerPl-s 013 mmoL/L .0 ed Cnc 21:45 Calcium 04-2 8.7 8.5-10. complet 013 mg/dL 1 ed SerPl-m 21:45 Cnc Prot 04-2 8.8 6.4-8.2 complet SerPl-m 013 gm/dL ed Cnc 21:45 Albumin -04-2 3.8 3.4-5.0 complet 013 gm/dL ed SerPl-m 21:45 Cnc Globuli 04-07-2 5.0 1.3-3.2 complet n 013 gm/dL ed Ser-mCn 21:45 c Albumin 04-2 0.8 UNK 1.1-1.8 complet /Glob 013 ed SerPl-m 21:45 Rto Bilirub 07-04-2 0.5 0.2-1.0 complet 013 mg/dL ed SerPl-m 21:45 Cnc AST 07-04-2 19 U/L 15-37 complet SerPl-c 013 ed Cnc 21:45 ALT 07-04-2 46 U/L 30-65 complet SerPl-c 013 ed Cnc 21:45 ALP 07-04-2 114 U/L 50-136 complet SerPl-c 013 ed Cnc 21:45 Amylase SerPl-cCnc (04-07-2013 21:45) Amylase 07-04-2 26 U/L 25-115 complet 013 ed SerPl-c 21:45 Cnc LIPASE (04-07-2013 21:45) LIPASE 07-04-2 55 U/L 73-393 complet 013 ed 21:45 CBC with AUTO DIFF (04-07-2013 21:45) WBC # 07-04-2 10.9 4.8-10. complet Bld 013 K/MM3 8 ed Auto 21:45 RBC # 07-04-2 6.37 4.6-6.2 complet Bld 013 M/mm3 ed Auto 21:45 Hgb 07-04-2 18.0 14.1-18 complet Bld-mCn 013 g/dL .0 ed c 21:45 Hct Fr 07-04-2 54.9 % 42.0-52 complet Bld 013 .0 ed 21:45 MCV RBC 07-04-2 86.3 fl 82.2-97 complet 013 .8 ed 21:45 MCH RBC 07-04-2 28.4 pg 27-31.2 complet Qn 013 ed Auto 21:45 MEAN 07-04-2 32.9 31.8-35 complet CORPUSC 013 g/dl .4 ed ULAR 21:45 HGB CONC RDW RBC 07-04-2 15.5 % 11.5-17 complet Auto 013 .5 ed 21:45 Platele 07-04-2 332 142-424 complet t Bld 013 K/mm3 ed Ql 21:45 Manual MEAN 07-04-2 6.8 fl 7.4-10. complet PLATELE 013 4 ed T 21:45 VOLUME Granulo 07-04-2 48.8 % 37.0-80 complet cytes 013 .0 ed Fr Bld 21:45 Auto LYMPH % 07-04-2 45.1 % 10-50 complet 013 ed 21:45 Monocyt 07-04-2 2.9 % 1.7-9.3 complet es Fr 013 ed Bld 21:45 Auto Eosinop 07-04-2 2.6 % 0.1-12. complet hil Fr 013 0 ed Bld 21:45 Auto Basophi 07-04-2 0.6 % 0.1-2.0 complet ls Fr 013 ed Bld 21:45 Auto Granulo 07-04-2 5.3 1.3-8.0 complet cytes # 013 K/mm3 ed Bld 21:45 Auto Lymphoc 07-04-2 4.9 0.7-4.5 complet ytes Fr 013 K/mm3 ed Bld 21:45 Auto Monocyt 07-04-2 0.3 0.1-1.0 complet es # 013 K/mm3 ed Bld 21:45 Auto Eosinop 07-04-2 0.3 0.0-0.4 complet hil # 013 K/mm3 ed Bld 21:45 Auto Basophi 07-04-2 0.1 0-0.2 complet ls # 013 K/MM3 ed Bld 21:45 Auto Procedures Procedure DOS Code Location Performer Comment VENOUS 3893 KACI CLEMONS CATHETERI 5 [facility] NOT ELSEWHERE CLASSIFIE D LEFT [address] CARDIAC CATHETERI ZATION CORONARY 8856 [facility] ARTERIOGR [address] [place] [address] APHY USING TWO CATHETERS PERQ 0066 [facility] TRANSLUMI [address] [place] [address] NAL CORONARY ANGIOPLAS TY PTCA ANGIOCARD 8853 [facility] IOGRAPHY [address] [place] [address] OF LEFT HEART STRUCTURE S INTRACORO 3604 [facility] NARY [address] [place] [address] ARTERY THROMBOLY TIC INFUSION Encounters Encounter Start End Date Code Location Performer Type Date HOSPITAL KACI [place] 7 [facility] OUTPATIEN [facility] KACI [place] 7 [facility]PATIEN [facility] - 7 7 [facility] - 6 [facility] - 6 6 [facility] - 6 6 [facility], 6 6 HOME INPATIENT HEALTH [facility] K[facility]I - 6 6 [facility] 6 6 HOME INPATIENT [facility]ALTH [facility] - 6 6 [facility] - 6 6 [facility] - 6 6 [facility], 6 6 HOME INPATIENT [facility]ALTH [facility] - 5 5 [facility], 5 5 HOME INPATIENT [facility]ALTH [facility] - 5 5 [facility] - 5 5 [facility] - 5 5 [facility] - 5 5 [facility] - 5 5 [facility] - 5 5 [facility] - 5 5 [facility] - 5 5 [facility] - 5 5 [facility] - 5 5 [facility] - 5 5 [facility] - 5 5 [facility] - 5 5 [facility] - 5 5 [facility] - 5 5 [facility] - 5 5 [facility] - 5 5 [facility] - 5 5 [facility] - 5 5 [facility] - 5 5 [facility] - 5 5 [facility] - 5 5 [facility] - 5 5 [facility] - 5 5 [facility] - 5 5 [facility] - 5 5 [facility] - 5 5 [facility] - 5 5 [facility] - 5 5 [facility] - 5 5 [facility] - 5 5 [facility] 5 5 [facility] - 5 5 [facility] - 5 5 [facility] - 5 5 [facility] - 5 5 [facility] 5 5 [facility] 5 5 [facility] - 5 5 [facility] - 5 5 [facility] - 5 5 [facility] 5 5 [facility] 5 5 [facility] 5 5 [facility] 5 5 [facility] - 5 5 [facility] - 5 5 [facility] 5 5 [facility] - 5 5 [facility] - 5 5 [facility] - 5 5 [facility] - 5 5 [facility] - 5 5 [facility] 5 5 [facility] 5 5 [facility] 5 5 [facility] 5 5 [facility] 5 5 [facility] 5 5 [facility] 5 5 [facility] 5 5 [facility] 5 5 [facility] 5 5 [facility] 5 5 [facility] 5 5 [facility] 5 5 [facility] 5 5 [facility] 5 5 [facility] 5 5 [facility] 5 5 [facility] 5 5 [facility] - 5 5 [facility] 5 5 [facility] 5 5 [facility] - 5 5 [facility] - 5 5 [facility] - 5 5 [facility] - 5 5 [facility] - 5 5 [facility] - 5 5 [facility] - 5 5 [facility]PATIENT [facility]I [facility] 5 5 [facility] - 4 4 [facility] - 4 4 [facility] Emergency MIRIAM Denton MD (ER) 3 13:09 3 16:43 [facility] Emergency MIRIAM Denton MD (ER) 3 09:44 3 11:42 [facility] [address] INPATIENT Emergency MIRIAM Nguyen MD (ER) 3 21:56 3 23:56 [facility]I - 3 3 [facility] - 3 3 [facility] - 3 3 [facility] - 3 3 [facility] - 3 3 [facility] - 3 3 [facility] - 3 3 [facility] - 2 2 [facility] - 2 2 [facility] - 2 2 [facility] - 2 2 [facility] - 1 1 [facility] - 0 0 [facility] - 9 9 [facility] - 8 8 [facility] - 8 8 [facility] - 8 8 [facility] - 8 8 [facility] 8 8 [facility]
--- OUTSIDE RECORDS SUMMARY | 2017-09-07 16:26 | External Medical Summary Rpt | CCD ---
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 1- 3- 00 06 TO ve AL 40 20 20 07 WN IL 01 [...] 2 93 PH CE AR TA MA ND CY NO PH OF EN CY 5- [...] 2 75 PH CE AR TA MA ND CY NO PH OF EN CY 5- [...] 00 09 0 No TO 40 -2 AL 92 7- Lo OL 28 20 ng [...] 10 10 0 15 25 EA 24 ND Ac AM 16 -2 -[address] [...] -2 -[address] 61 US ti AL 70 1- 1- 00 SI 05 MA [...] DE T ZA 11 11 11 NITA AL 0 PH HN IN AR W E [...] 20 DE ZA [address] AL 0 PH EP IN AR NAVARRETE E [...] DE T ZA 11 11 11 NITA AL 0 PH HN IN AR W E [...] 0- 0- 00 SI 29 LD ve ND 04 20 20 0 DE N 81 [...] 1- 2- 00 SI 25 LD ve ND 04 20 20 0 DE N 81 [...] 1- 1- 00 SI 25 LD ve ND 04 20 20 0 DE N 81 [...] 5- 1- 00 SI 99 LD ve ND 04 20 20 0 DE N 81 [...] 5- 2- 00 SI 99 LD ve ND 04 20 20 0 DE N 81 [...] 5- 7- 00 SI 99 LD ve ND 04 20 20 0 DE N 81 [...] 5- 7- 00 SI 99 LD ve ND 04 20 20 0 DE N 81 [...] 1- 6- 00 SI 90 Av ve ND 19 20 20 0 DE ai N [...] CY OF CY NT HI AN A AL 00 04 09 01 30 7 EA [...] MG NT HI TA AN B A AL 37 02 06 02 30 30 EA [...] 1- 2- 00 SI 90 Av ve ND 19 20 20 0 DE ai N [...] CY BL NT ET HI AN A AL 00 04 04 00 30 7 EA [...] CY OF CY NT HI AN A AL 37 02 04 01 30 30 EA [...] 1- 0- 00 SI 90 Av ve ND 19 20 20 0 DE ai N [...] MC CY G NT HI AN A AL 00 02 04 00 20 5 EA [...] 0- 6- 00 SI 25 Av ve ND 19 20 20 0 DE ai N 00 07 08 la HC 1 PH bl L AR e 50 MA 0 CY MG OF TA CY BL NT ET HI AN A AL 37 02 03 00 30 30 EA [...] 017 LIGHT ed 14:18 GROWTH L Bacteri [id number] complet a XXX 017 ed Anaerob 14:18 Staphyl e+Aerob ococcus e Cult aureus (organi sm) SCT SAUR STAPHYL OCOCCUS AUREUS L Bacteri [id number] complet a XXX 017 01 ed Anaerob 14:18 Methici e+Aerob llin e Cult resista nt Staphyl ococcus aureus (organi sm) SCT MRSA1 (MRSA) L Comment: 1+ Staphylococcus aureus (organism) Methicillin resistant Staphylococcus aureus Comment: (organism) Bacteri [id number] complet a XXX 017 4 ed Anaerob [...] Comment VENOUS 3893 K[facility] CLEMONS [facility] NOT ELSE[facility] CLASSIFIE D LEFT [address] CARDIAC CATHETERI ZATION CORONARY 8856 [facility] ARTERIOGR [address] [place] [address] APHY USING TWO CATHETERS PERQ 0066 [facility] TRANSLUMI [address] [place] [address] NAL CORONARY ANGIOPLAS TY PTCA ANGIOCARD 8853 [facility] IOGRAPHY [address] [place] [address] OF LEFT HEART STRUCTURE S INTRACORO 3604 [facility] NARY [address] [place] [address] ARTERY THROMBOLY TIC INFUSION Encounters Encounter Start End Date Code Location Performer Type Date HOSPITAL KACI [place] 7 [facility] OUTPATIEN [facility] KACI Clayton 7 [facility]IEN [facility] - [facility] - [facility] - [facility] - 6 [facility], 6 6 HOME [facility]PATIENT [facility]ALTH [facility] KACI - 6 6 [facility] 6 6 HOME INPATIENT [facility]ALTH [facility] KACI - 6 6 [facility] - 6 6 [facility] - 6 6 [facility], 6 6 HOME INPATIENT [facility]ALTH [facility]ACI - 5 5 [facility], 5 5 HOME INPATIENT [facility]ALTH [facility] KACI - 5 5 MEM [...] KACI - 5 5 [facility] OUTPATIEN [facility] KACI - 5 5 [facility]PATI[facility] KAC[facility] - 5 5 [facility]PATIEN [facility] K[facility]I - 5 5 [facility]PATI[facility] K[facility]I - 5 5 [facility]PATI[facility] K[facility]I - 5 5 [facility]PATI[facility] K[facility] - 5 5 [facility]PAT[facility] K[facility]I - 5 5 [facility]PATI[facility] K[facility]I - 5 5 [facility]PAT[facility] KACI - 5 5 [facility]PATI[facility] K[facility]I - 5 5 [facility]PATI[facility] K[facility]I - 5 5 [facility]PATI[facility] K[facility]I - 5 5 [facility]PATI[facility] K[facility]I - 5 5 [facility]PATI[facility] K[facility] - 5 5 [facility] K[facility]I - 5 5 [facility] KACI - 5 5 [facility]PATI[facility] KACI - 5 5 [facility]PAT[facility] KACI - 5 5 [facility]PAT[facility] K[facility]I - 5 5 [facility]PAT[facility]I - 5 5 [facility]PATI[facility] K[facility]I - 5 5 [facility] [...] - 5 5 [facility]PATI[facility] - 5 5 [facility] - 5 5 [facility] - 5 5 [facility]PATI[facility] KACI - 5 5 MEM [facility] [...] KACI - 5 5 [facility] OUTPATIEN [facility] KACI - 5 5 [facility] 5 5 [facility] - 5 5 [facility] KACI - 5 5 [facility]I - 5 5 [facility] KACI - 5 5 [facility]PATI[facility]I - 5 5 [facility] K[facility]I - 5 5 [facility]PATIEN [facility] KACI - 5 5 [facility] OUTPATIEN [facility] KACI - 5 5 [facility] INPATIENT [facility] KACI [facility] 5 5 [facility] OUTPATIEN [facility] KACI - 4 4 [facility] KACI - 4 4 [facility] Emergency MIRIAM Denton MD (ER) 3 13:09 3 16:43 [facility] Emergency MIRIAM Denton MD (ER) 3 09:44 3 11:42 [facility] [address] INPATIENT Emergency MIRIAM Nguyen MD (ER) 3 21:56 3 23:56 [facility] KACI - 3 3 [facility] OUTPATIEN [facility] KACI - 3 3 [facility]IEN [facility] KACI - 3 3 [facility]PATIEN [facility] KACI - 3 3 [facility]PATIEN [facility] KACI - 3 3 [facility]PATIEN [facility] KACI - 3 3 [facility]PAT[facility] KACI - 3 3 [facility]PAT[facility] KACI - 2 2 [facility]PATIEN [facility] KACI - 2 2 [facility]PATIEN [facility] KACI - 2 2 [facility]PATIEN [facility] KACI - 2 2 [facility]PATIEN [facility] KACI - 1 1 [facility]PAT[facility] KACI - 0 0 [facility]PATIEN [facility] KACI - 9 9 [facility]PATIEN [facility] KACI - 8 8 [facility] KACI - 8 8 [facility] KACI - 8 8 [facility] KACI - 8 8 [facility] KACI - 8 8 [facility]
--- OUTSIDE RECORDS SUMMARY | 2017-09-07 16:46 | External Medical Summary Rpt | CCD ---
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 30 00 HO Ac TF 50 -1 -0 0. 00 ME ti OR 50 3- 7- 00 06 TO ve WA 26 20 20 0 08 WN N 00 17 17 08 HC 2 77 PH L AR ER MA CY 50 0 OF MG CY TA NT BL HI ET AN A GL 00 03 04 30 [...] 00 3- 7- 00 06 TO ve GA 51 20 20 08 WN IL 40 [...] CY NT HI AN A CO 00 03 04 4. 28 00 [...] 30 -1 -0 .0 00 ME ti GA 00 3- 7- 00 06 TO ve [...] CY NT HI AN A GA 68 03 04 84 [...] ML LE XI NG AL TO N HY 00 02 03 9. [address] 60 -2 -2 00 00 ME ti OC 33 4- 4- 0 02 TO ve OD 89 20 20 01 WN ON 03 17 17 29 -A 2 86 PH CE AR TA MA WA CY NO PH OF EN CY 5- NT 32 HI 5 AN A SO 00 02 03 30 3 00 IN Ac DI 33 -2 -2 0. 05 FU ti UM 80 3- 4- 00 00 SI ve 55 20 20 0 11 ON CH 31 17 17 10 LO 8 63 PA RI RT DE NE RS 0. 9% OF SO LE SUE XI TI NG ON TO N CO 00 02 03 4. 30 00 [...] 30 -0 -0 .0 00 ME ti GA 00 2- 3- 00 06 TO ve OL 12 20 20 07 WN OL 60 17 17 55 1 31 PH FU AR MA MA RA CY TE 5 OF MG CY NT TA HI B AN A LI 68 02 03 30 30 00 HO Ac SI 18 -0 -0 .0 00 ME ti NO 00 6- 3- 00 06 TO ve GA 51 20 20 08 WN IL 40 [...] 50 6- 3- 00 06 TO ve WA 26 20 20 0 08 WN N [...] OF AL LE XI NG TO N DA 00 01 02 8. 5 00 IN Ac PT 70 -1 -1 00 05 FU ti OM 30 4- 0- 0 00 SI ve YC 12 20 20 10 ON IN 50 17 17 98 1 52 PA 50 RT 0 NE MG RS OF AL LE XI NG TO N VE 00 01 02 18 17 00 HO Ac NT 17 -1 -1 .0 00 ME ti OL 30 8- 0- 00 06 TO ve IN 68 20 20 07 WN 22 17 17 86 HF 0 30 PH A AR 90 MA CY MC G OF IN NAVARRETE CY LE NT R HI AN A CO 00 01 02 4. 30 00 [...] 2 27 PH CE AR TA MA WA CY NO PH OF EN CY 5- NT 32 HI 5 AN A CL 00 01 02 30 [...] ET CY NT HI AN A LI 00 01 02 30 30 00 HO Ac SI 18 -1 -0 .0 00 ME ti NO 55 1- 3- 00 06 TO ve GA 40 20 20 07 WN IL 01 17 17 93 5 0 19 PH AR MG MA CY TA BL OF ET CY NT HI AN A VE [...] 2 93 PH CE AR TA MA WA CY NO PH OF EN CY 5- [...] CY NT HI AN A CO 00 12 01 4. 30 00 HO Ac MB 59 -1 -1 00 00 ME ti IV 70 9- 3- 0 06 TO ve EN 02 20 20 07 WN T 40 16 17 49 RE 2 07 PH SP AR IM MA AT CY IN OF NAVARRETE L CY SP NT RA HI Y AN A SO 00 12 01 10 10 00 IN Ac DI 33 -1 -1 00 05 FU ti UM 80 2- 3- .0 00 SI ve 04 20 20 00 10 ON CH 93 16 17 92 LO 8 27 PA RI RT DE NE RS 0. 9% OF SO LE SUE XI TI NG ON TO N CL 00 12 01 30 30 00 [...] 2 75 PH CE AR TA MA WA CY NO PH OF EN CY 5- NT 32 HI 5 AN A TR 65 10 10 0 15 25 EA 24 WA Ac AM 16 -2 -[address] [...] -2 -[address] 61 US ti GA 70 1- 1- 00 SI 05 MA [...] DE T ZA 11 11 11 NITA GA 0 PH HN IN AR W E [...] [address] 1 PH EP AR NAAVRRETE MA NI CY E L OF CY NT HI AN A CY 00 08 08 0 90 30 EA 23 HE Ac CL 37 -0 -[address] ti OB 80 2- 2- 00 SI 37 ER ve EN 75 20 20 DE ZA [address] GA 0 PH EP IN AR NAVARRETE E [...] DE T ZA 11 11 11 NITA GA 0 PH HN IN AR W E [...] 0- 0- 00 SI 29 LD ve WA 04 20 20 0 DE N 81 [...] 1- 2- 00 SI 25 LD ve WA 04 20 20 0 DE N 81 [...] 1- 1- 00 SI 25 LD ve WA 04 20 20 0 DE N 81 [...] ET HI AN A ME 00 02 12 03 12 30 EA 11 AR Ac TF 09 -0 -[address] 35 NO ti OR 31 5- 1- 00 SI 99 LD ve WA 04 20 20 0 DE N 81 [...] HI TA AN B A IB 53 11 12 00 90 [...] HI AN A TR 65 11 12 00 15 [...] ET HI AN A TR 65 08 10 [...] NT HI AN A ME 00 02 10 02 12 30 EA 11 AR Ac TF 09 -0 -[address] 35 NO ti OR 31 5- 2- 00 SI 99 LD ve WA 04 20 20 0 DE N 81 09 09 RI HC 0 PH CH L AR AR 50 MA D 0 CY W MG OF TA CY BL NT ET HI AN A HY 00 06 09 [...] HI TA AN B A TR 65 08 09 01 90 [...] NT HI AN A HY 00 06 08 01 30 [...] 5- 7- 00 SI 99 LD ve WA 04 20 20 0 DE N 81 [...] NT OF CY NT HI AN A PE [...] M OF CY NT HI AN A IB [...] OF ET CY NT HI AN A 57 02 05 01 30 30 EA 11 AR Ac 66 -0 -[address] 35 NO ti 40 5- 1- 00 SI 98 LD ve 42 20 20 DE 81 09 09 RI 8 PH CH AR AR MA D CY W OF CY NT HI AN A LO 45 04 05 [...] ET NT HI AN A 59 01 05 [...] 5- 7- 00 SI 99 LD ve WA 04 20 20 0 DE N 81 09 09 RI HC 0 PH CH L AR AR 50 MA D 0 CY W MG OF TA CY BL NT ET HI AN A CE 00 04 04 [...] CY UL NT E HI AN A 00 04 04 00 10 25 EA 12 AR Ac 59 -1 -[address] 38 NO ti 10 7- 3- 00 SI 89 LD ve 38 20 20 0 DE 50 09 09 RI 1 PH CH AR AR MA D CY W OF CY NT HI AN A HY 00 02 03 [...] MG NT HI TA AN B A PE 45 10 11 01 60 1 EA 99 AR Ac RM 80 -1 -[address] 81 NO ti ET 20 0- 7- 00 SI 07 LD ve HR 26 20 20 DE IN 93 08 08 RI 7 PH CH 5% AR AR MA D CR CY W EA M OF CY NT HI AN A HY 00 03 11 05 30 [...] CY OF CY NT HI AN A GA 00 04 09 01 30 7 EA 97 No Ac OM 78 -1 -[address] 62 t ti ET 11 5- 6- 00 SI 71 Av ve NAVARRETE 83 20 20 DE ai ZI 01 08 08 la NE 0 PH bl AR e 25 MA CY MG OF TA CY BL NT ET HI AN A SM 49 09 09 [...] 1- 6- 00 SI 90 Av ve WA 19 20 20 0 DE ai N [...] CY NT HI AN A 17 06 09 01 17 25 EA 98 No Ac 27 -1 -[address] 34 t ti 00 2- 6- 00 SI 65 Av ve 72 20 20 DE ai 10 08 08 la 1 PH bl AR e MA CY OF CY NT HI AN A HY 00 03 09 04 [...] HI TA AN B A SM 49 08 09 00 59 1 EA 99 No Ac 34 -2 -[address] 26 t ti LI 80 8- 1- 00 SI 16 Av ve CE 46 20 20 DE ai 03 08 08 la TR 0 PH bl EA AR e TM MA EN CY T PE OF RM CY ET NT HR HI IN AN A 60 07 08 01 10 25 EA 98 No Ac 50 -2 -[address] 80 t ti 50 2- 8- 00 SI 36 Av ve 17 20 20 0 DE ai 10 08 08 la 8 PH bl AR e MA CY OF CY NT HI AN A 60 07 08 00 [...] CY UL NT E HI AN A 00 06 07 01 18 9 [...] TA AN B A 00 06 07 00 18 9 [...] ET NT HR HI IN AN A 60 06 07 00 20 [...] MG NT HI TA AN B A GA 37 02 06 02 30 30 EA [...] 1- 2- 00 SI 90 Av ve WA 19 20 20 0 DE ai N [...] ET HI AN A TR 57 02 04 02 10 [...] ET HI AN A HY 00 03 04 [...] MG NT HI TA AN B A GA 00 04 04 00 30 7 EA [...] CY OF CY NT HI AN A SE 00 03 04 01 60 30 EA 97 No Ac RE 17 -0 -[address] 11 t ti VE 30 6- 4- 00 SI 38 Av ve NT 52 20 20 DE ai 10 08 08 la DI 0 PH bl SK AR e US MA CY 50 OF MC CY G NT HI AN A 00 03 04 00 40 10 EA 97 No Ac 59 -1 -[address] 15 t ti 10 0- 7- 00 SI 47 Av ve 34 20 20 DE ai 90 08 08 la 1 PH bl AR e MA CY OF CY NT HI AN A GA 37 02 04 01 30 30 EA 96 No Ac IL 00 -1 -[address] 85 t ti OS 00 8- 7- 00 SI 28 Av ve EC 45 20 20 DE ai 50 08 08 la OT 2 PH bl C AR e 20 MA .6 CY MG OF CY TA NT BL HI ET AN A HY 00 03 04 00 [...] CY OF CY NT HI AN A 53 02 04 01 10 [...] CY RA NT Y HI AN A ME 60 02 04 00 12 30 EA 97 No Ac TF 50 -0 -[address] 15 t ti OR 50 1- 0- 00 SI 90 Av ve WA 19 20 20 0 DE ai N [...] -[address] 07 t ti 10 3- 7- 00 SI 00 Av ve 38 20 20 DE ai 50 08 08 la 1 PH bl AR e MA CY OF CY NT HI AN A EN 60 02 04 00 40 6 EA 96 No Ac DO 95 -2 -[address] 97 t ti CE 10 6- 7- 00 SI 84 Av ve T 71 20 20 DE ai 10 27 08 08 la -3 0 PH bl 25 AR e MA MG CY TA OF BL CY ET NT HI AN A SE 00 03 04 00 60 30 EA 97 No Ac RE 17 -0 -[address] 11 t ti VE 30 6- 7- 00 SI 38 Av ve NT 52 20 20 DE ai 10 08 08 la DI 0 PH bl SK AR e US MA CY 50 OF MC CY G NT HI AN A GA 00 02 04 00 20 5 EA 96 No Ac OM 78 -2 -[address] 97 t ti ET 11 6- 7- 00 SI 85 Av ve NAVARRETE 83 20 20 DE ai ZI 01 08 08 la NE 0 PH bl AR e 25 MA CY MG OF TA CY BL NT ET HI AN A GA 37 02 03 00 30 30 EA 96 No Ac IL 00 -1 -[address] 85 t ti OS 00 8- 6- 00 SI 28 Av ve EC 45 20 20 DE ai 50 08 08 la OT 2 PH bl C AR e 20 MA .6 CY MG OF CY TA NT BL HI ET AN A HY 00 10 03 03 30 30 EA [address] 17 -2 -[address] 29 t ti OC 22 5- 6- 00 SI 49 Av ve HL 08 20 20 DE ai OR 38 07 08 la OT 0 PH bl HI AR e AZ MA ID CY E 25 OF CY MG NT HI TA AN B A 53 02 03 00 10 25 EA 96 No Ac 48 -1 -[address] 76 t ti 90 1- 6 00 SI 01 Av ve 49 20 [...] CY NT HI AN A ME 60 10 03 02 12 30 EA 95 No Ac TF 50 -3 -[address] 35 t ti OR 50 0- 6- 00 SI 25 Av ve WA 19 20 20 0 DE ai N [...] MG NT HI TA AN B A Procedures Procedure DOS Code Location Performer Comment VENOUS 3893 KACI CLEMONS CATHETERI 5 [facility] NOT ELSEWHERE CLASSIFIE D CORONARY 8856 [facility] ARTERIOGR [address] [place] [address] APHY USING TWO CATHETERS LEFT [id number] CARDIAC CATHETERI ZATION PERQ [address] NAL CORONARY ANGIOPLAS TY PTCA ANGIOCARD 8853 [facility] [address] OF LEFT HEART STRUCTURE S INTRACORO [address] ARTERY THROMBOLY TIC INFUSION Encounters Encounter Start End Date Code Location Performer Type Date [facility] KACI - 7 7 [facility] K[facility]I - 7 7 [facility] - 7 7 [facility] - 7 7 [facility] - 6 6 [facility] - 6 6 [facility] - 6 6 [facility] - 6 6 [facility] 6 6 HOME [facility]PATIENT HEALTH [facility] KACI - 6 6 [facility] 6 6 HOME [facility]PATIENT HEALTH [facility] KACI - 6 6 [facility] KACI - 6 6 [facility] - 6 6 [facility] KACI - 6 6 [facility] KACI - 6 6 [facility] 6 6 HOME INPATIENT HEALTH [facility] KACI - 5 5 [facility]EN [facility] 5 5 HOME INPATIENT HEALTH [facility] KACI - 5 5 [facility] KACI - 5 5 [facility] - 5 5 [facility]I - 5 5 [facility] - 5 5 [facility]I - 5 5 [facility] - 5 5 [facility]I - 5 5 [facility] - 5 [facility]I - 5 5 [facility] - 5 5 [facility]I - 5 5 [facility] - 5 5 [facility] - 5 [facility] - 5 [facility] - 5 5 [facility] - 5 5 [facility] - 5 5 [facility] - 5 5 [facility] 5 [facility] - 5 5 [facility] - 5 5 [facility] - 5 5 [facility] - 5 5 [facility] - 5 5 [facility] - 5 5 [facility] - 5 5 [facility] - 5 5 [facility] - 5 5 [facility] - 5 5 [facility] - 5 5 [facility] - 5 5 [facility] - 5 5 [facility] - 5 5 [facility] - 5 5 [facility] - 5 5 [facility] - 5 5 [facility] - 5 5 [facility] - 5 5 [facility] - 5 5 [facility] - 5 5 [facility] - 5 5 [facility] - 5 5 [facility] [...] - 5 5 [facility] - 5 5 [facility] - 5 5 [facility] - 5 5 [facility] - 5 5 [facility] - 5 5 [facility] - 5 5 [facility] - 5 5 [facility] - 5 5 [facility] - 5 5 [facility] - 5 5 [facility] - 5 5 [facility] - 5 5 [facility] - 5 5 [facility] - 5 5 [facility] - 5 5 [facility] - 4 4 [facility] - 4 4 [facility] [place] [id number] [facility] - 3 3 [facility] - 3 3 [facility] - 3 3 [facility] - 3 3 [facility] - 3 3 [facility] - 3 3 [facility] - 3 3 [facility] - 2 2 [facility] - 2 2 [facility] - 2 2 [facility] 2 2 [facility] 1 1 [facility] 0 0 [facility] - 9 9 [facility] - 8 8 [facility] 8 8 [facility]
--- OUTSIDE RECORDS SUMMARY | 2017-09-07 16:46 | External Medical Summary Rpt | CCD ---
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 G NT HI AN A [place] 00 02 04 00 20 5 EA 96 No Ac OM 78 -2 -[address] 97 t ti ET 11 6- 7- 00 SI 85 Av ve NAVARRETE 83 20 20 DE ai ZI 01 08 08 la NE 0 PH bl AR e 25 MA CY MG OF TA CY BL NT ET HI AN A [place] 37 02 03 00 30 30 EA [...] 0- 6- 00 SI 25 Av ve DE 19 20 20 0 DE ai N [...] 3893 KACI CLEMONS [facility] 5 [facility] ZATION INC INC NOT ELSEWHERE CLASSIFIE D CORONARY 8856 [facility] ARTERIOGR [address] [place] [address] APHY USING TWO CATHETERS LEFT [address] CARDIAC CATHETERI ZATION PERQ [address] NAL CORONARY ANGIOPLAS TY PTCA ANGIOCARD 8853 [facility] [address] OF LEFT HEART STRUCTURE S INTRACORO [address] ARTERY THROMBOLY TIC INFUSION Encounters Encounter Start End Date Code Location Performer Type Date [facility] KACI - 7 7 [facility] - 7 7 [facility] [place] - 7 7 [facility] - 7 7 [facility] 7 7 [facility] - 6 6 [facility] - 6 6 [facility] - 6 6 [facility] - 6 6 [facility], 6 6 HOME INPATIENT HEALTH [facility] KACI - 6 6 [facility] COUNT INCLUDES [facility] 6 6 HOME INPATIENT HEALTH [facility] KACI - 6 6 [facility] K[facility]I - 6 6 [facility] - 6 6 [facility]I - 6 6 [facility] - 6 6 [facility] COUNT INCLUDES THE [facility], 6 6 HOME INPATIENT HEALTH [facility] KACI - 5 5 [facility] OUTPATIEN INC [facility] COUNT INCLUDES THE [facility] 5 5 HOME INPATIENT HEALTH [facility] KACI - 5 5 [facility] K[facility]I - 5 5 [facility] - 5 5 [facility] - 5 5 [facility] - 5 5 [facility] - 5 5 [facility] - 5 5 [facility] - 5 5 [facility] - 5 5 [facility] - 5 5 [facility] - 5 5 [facility] - 5 5 [facility] - 5 5 [facility] - 5 5 [facility] - 5 5 [facility] - 5 5 [facility] - 5 5 [facility] - 5 5 [facility] - 5 5 [facility] KACI - 5 5 [facility] KACI - 5 5 MEM [...] - 5 5 MEM H[facility] OUTPATIEN INC [facility] KACI - 5 5 MEM HOSP [...] - 5 5 [facility] OUTPATIEN INC [facility] KACI - 5 5 [facility] KACI - 5 5 [facility] KACI - 5 5 [facility]PAT[facility] KACI - 5 5 [facility] KACI - 5 5 [facility] KACI - 5 5 [facility] KACI - 5 5 [facility] KACI - 5 5 [facility] - 5 5 [facility]PAT[facility]EN [facility] KACI - 5 5 [facility]PAT[facility]EN [facility] KACI - 5 5 [facility]PAT[facility] KACI - 5 5 [facility] KACI - 5 5 [facility] - 5 5 [facility]PAT[facility] KACI - 5 5 [facility] KACI - 4 4 [facility]PAT[facility] KACI - 4 4 [facility] [place] [id number] [facility]PAT[facility] KACI - 3 3 [facility]I - 3 3 [facility] - 3 3 [facility] KACI - 3 3 [facility]PATIEN [facility] KACI - 3 3 [facility] - 3 3 [facility] - 3 3 [facility] - 2 2 [facility] - 2 2 [facility] - 2 2 [facility] - 2 2 [facility] - 1 1 [facility] - 0 0 [facility] - 9 9 [facility] - 8 8 [facility] - 8 8 [facility] - 8 8 [facility]I - 8 8 [facility] - 8 8 [facility]
--- OUTSIDE RECORDS SUMMARY | 2017-09-07 16:50 | External Medical Summary Rpt ---
Author Author ZULMA Langford, ZULMA [employer] Address Unknown Phone Unavailable Results Drugs identified in Urine by Screen method Observa Value Referen Units Interpr Notes Date tion ce etation Range Positive urine drug screen samples are stored for 7 days. Contact the Lab if confirmation of positives is needed. Ampheta NEGATIV <1000 ng/mL No No Jul 28 mine E informa informa 2016 [Presen tion in tion in 3:25 PM ce] in source source Urine data data by Screen method Barbitura <200 ng/mL No No Jul 28 thaddeus informati informati 2016 3:25 [Mass/vol on in on in PM ume] in source source Urine by data data Screen method Benzodiaz 200 ng/mL ng/mL No No Jul 28 epines informati informati 2016 3:25 [Mass/vol on in on in PM ume] in source source Serum or data data Plasma by Screen method Cocaine <300 ng/g No No Jul 28 [Mass/vol informati informati 2016 3:25 ume] in on in on in PM Unspecifi source source ed data data specimen Methadone <300 ng/mL No No Jul 28 informati informati 2016 3:25 [Mass/vol on in on in PM ume] in source source Unspecifi data data ed specimen Opiates <300 ng/mL No No Jul 28 [Mass/vol informati informati 2016 3:25 ume] in on in on in PM Unspecifi source source ed data data specimen Phencycli <25 ng/mL No No Jul 28 dine informati informati 2017 3:25 [Mass/vol on in on in PM ume] in source source Unspecifi data data ed specimen 11-Hydr NEGATIV <50 ng/mL No No Jul 28 oxy E informa informa 2017 delta-9 tion in tion in 3:25 PM source source tetrahy data data drocann abinol [Presen ce] in Unspeci fied specime n
--- OUTSIDE RECORDS SUMMARY | 2017-09-07 16:50 | External Medical Summary Rpt | CCD ---
Demographics Preferred Language Danish Marital Status Unknown Mosque Affiliation Unknown Race Unknown Ethnic Group Unknown Author Author , ZULMA MAYA Address Unknown Phone Immunization No patient found.
--- OUTSIDE RECORDS SUMMARY | 2017-09-07 16:50 | External Medical Summary Rpt ---
Author Author ZULMA Langford, ZULMA [employer] Address Unknown Phone Unavailable Results Drugs [...]
--- OUTSIDE RECORDS SUMMARY | 2017-09-07 16:50 | External Medical Summary Rpt | CCD ---
Demographics Preferred Language Greenlandic Marital Status Unknown Advent Affiliation Unknown Race Unknown Ethnic Group Unknown Author Author , ZULMA MAYA Address Unknown Phone Immunization No patient found.
--- NOTE | 2017-09-07 17:43 | Emergency Room Report ---
History of Present Illness Time Seen by 1605 Presenting Problem in Triage Pt arrived:Wheelchair Presenting Problem:SEEN IN DR. JAMES'S OFFICE FOR FOOT, ELEVATED BLOOD PRESSURE OF 163/109 168/103. PT REPORTS DIZZINESS. 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 N Clinical Suspician of Infection? N Mental Status: 1 - Regular (Normal Baseline) Sepsis Risk:Low Sepsis Risk Have you (or family members/close friends) recently traveled outside the [place]? N If Yes, where/when: Have you had exposure to infectious disease within the past month? N TB? Other? Specify: Source patient, RN notes reviewed, family, old records Exam Limitations no limitations Comment pt with elevated bp today with some dizzyness as he was at podiatry with no chest pain or syncope- he reports no meds today Cardiac Chest Pain Chest pain indicative of cardiac No Timing/Duration this evening Severity moderate ALLERGIES Coded Allergies: vancomycin (Intermediate, I-RASH 09/28/16) Home Medications Active Scripts ISOSORBIDE MONONITRATE (IMDUR 30MG) 30 MG PO DAILY #30 TAB Prov: 09/29/16 ASPIRIN ENTERIC COATED (Aspirin EC) 81 MG PO DAILY #30 TAB Ref 11 Prov: 10/12/14 Atorvastatin Calcium (Atorvastatin 40MG) 80 MG PO QHS #30 TAB Ref 3 Prov: 10/12/14 BISOPROLOL FUMARATE (Bisoprolol 5MG) 5 MG PO BID #30 TAB Ref 3 Prov: 10/12/14 LISINOPRIL (Lisinopril) 5 MG PO DAILY #30 TAB Ref 3 Prov: 10/12/14 Reported Medications ALBUTEROL (Ventolin Hfa) 1 PUFF IH Q6HP PRN SHORTNESS OF BREATH METFORMIN HCL (Metformin) 1,000 MG PO BID #60 TAB Gabapentin (Neurontin) 600 MG PO TID ALBUTEROL/IPRATROPIUM (Combivent Respimat Inhal [place]) 1 PUFF IH QID CLOPIDOGREL BISULFATE (Clopidogrel) 75 MG PO DAILY #30 History Medical History General CAD? Yes Angina: Yes DC: Yes Hypertension? Yes Hyperlipidemia? Yes CHF? Yes DVT? No PE? No COPD? Yes Asthma? Yes Anemia? No GERD? No Gastric ulcers? No GI Bleed? No Hernia? Yes Thyroid Problems? No Hypothyroidism? No CVA? No Seizures? No Diabetes? Yes Insulin Dependent: No Insulin Pump: No Home FSBS? Yes Renal Insuffiency? No End Stage Renal Disease? No UTI? Yes Stones? No BPH? No GB Disease: No Nephritic Syndrome? No Asplenia? No Hepatitis? No Sickle Cell Disease? No Arthritis? No Migraines? No Cataracts? No Glaucoma? No MRSA? No HIV? No TB? No Anxiety? No Depression? No Cancer? No More? Yes Additional hx: CELLULITIS-RIGHT FOOT Immunization Hx DT/Tetanus Unknown Flu Refused Pneumonia Never Had Surgical Hx Previous Surgery?Y Tonsils NASAL L KNEE UMBILICAL HERNIA ANGIOPLASTY 2013 BONE REMOVED RIGHT FOOT CARDIAC STENTS X2 LEFT GREAT TOE AMPUTATION Family History Family Hx Diabetes Yes CAD Yes Hypertension Yes Hyperlipidemia Yes Cancer Yes TB No Social History Smoking Hx Smoker: Current Every Day Smoker Tobacco: Yes Type Cigarettes Packs/day 1 1/2 - 2 Packs Alcohol Alcohol: Yes Drugs none Review of Systems All Other Systems Reviewed and Negative Constitutional denies fever Eyes denies drainage ENT denies: ear discharge, epistaxis, throat pain. Respiratory denies cough, denies shortness of breath, denies wheezing Cardiovascular denies chest pain, denies palpitations, denies syncope Gastrointestinal denies abdominal pain, denies diarrhea, denies vomiting Genitourinary denies: dysuria, frequency, hesitancy, hematuria. Musculoskeletal denies back pain, denies joint pain, denies joint swelling, denies neck pain Skin denies rash Psychiatric/Neurological see HPI, denies headache, denies seizure, other Physical Exam Vital Signs Vital Signs Date Time Temp Pulse Resp B/P Pulse O2 O2 Flow FiO2 Ox Delivery Rate 09/07 1724 106 18 162/102 100 12/ 1603 98.5 108 18 163/102 100 - WBC >12,000 or <4,000 or 10% bands? 2 or more SIRS Criteria Met? B/P:162/102 MAP:122 Creatinine >2.0? UA output<0.5ml/kg/hr for 2 hrs? Platelet count >100,000? Lactate >2.0mmol/1? INR >1.2 or PTT > than 60 sec? Evidence of Organ Dysfunction? Provider documented clinical suspician of infection? N Sepsis Criteria Count: 1 Sepsis Risk: Low Sepsis Risk General Appearance no apparent distress Eye Exam - bilateral eye PERRL, bilateral eye EOMI Ear, Nose, Throat normal ENT inspection Neck supple Respiratory Status No: respiratory distress. Lung Sounds bilateral: lungs clear. 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 No Departure Departure Time of Disposition 1750 Disposition DC Home or Self Care(routine) Clinical Impression Primary Impression: Hypertensive emergency Condition STABLE Referrals Wendy CASE,Joaquín Bojorquez (Family) Patient Instructions Treatments for High Blood Pressure: More Than Just Taking a Pill Additional Instructions resume meds and call pcp for follow up Discharge Counseling Counseled pt/family regarding diagnosis, medications/RX, follow up needs ED Critical Care Critical Care No at 1754
[2017-09-07 18:13] VITALS: BP 151/92
== END 2017-09-07 18:15 | disposition home or self-care (01) ==
LOC: ER 15:57
DX: I10 Essential (primary) hypertension (principal); Z88.1 Allergy status to other antibiotic agents; I25.10 Atherosclerotic heart disease of native coronary artery without angina pectoris; E78.5 Hyperlipidemia, unspecified; I50.9 Heart failure, unspecified; J44.9 Chronic obstructive pulmonary disease, unspecified; E11.9 Type 2 diabetes mellitus without complications; F17.210 Nicotine dependence, cigarettes, uncomplicated